=== PATIENT | male | born 1950 | race Caucasian/White ===

== ENCOUNTER 2023-09-01 18:02 | Inpatient (IN) | payer OTHER, SELFPAY ==
[2023-09-01] VITALS (29 sets, daily range): BP systolic 95–113; BP diastolic 66–79; PULSE 104–121; RESP 16–34; TEMP 36.6–37.2; O2SAT 90–99
--- NOTE | ~2023-09-01 | XR_ITS ---
EXAMINATION: XR chest 1V portable Exam Date/Time: 09/01/2023 18:15 CDT HISTORY: SOB, HIGH HR, DX PNEUMONIA 6 DAYS AGO, NOT GETTING BETTER Comparison: None. RESULT: Lines, tubes, and devices: None. Lungs and pleura: Lumbar airspace disease in the left upper and midlung. Segmental airspace disease in the peripheral right upper lung. Emphysematous/senescent changes. Cardiomediastinal silhouette: Unremarkable. Other: No acute osseous or upper abdominal finding. IMPRESSION: Bilateral airspace disease concerning for multifocal pneumonia. Reviewed, dictated and finalized at location K.
--- NOTE | ~2023-09-01 | XR_ITS ---
Portable chest x-ray Comparison: 09/01/2023 Clinical History: Pneumonia Findings: There is patchy bilateral consolidation throughout both lungs. Probable minimal left pleur al effusion. Cardiomediastinal silhouette is stable. Bones and soft tissues are unremarkable. Impression: Patchy bilateral consolidation, worsened in the right lung. Findings suggest bilateral pneumonia. Minimal left pleural effusion. Reviewed, dictated and finalized at location . Impression: Patchy bilateral consolidation, worsened in the right lung. Findings suggest bi lateral pneumonia. Minimal left pleural effusion.
--- NOTE | ~2023-09-01 | XR_ITS ---
XR chest 2V 09/08/2023 13:45 Indication: Cough. Dyspnea with exertion. Procedure: 2 view chest Comparison: 09/04/2023 Findings: Patchy bilateral airspace disease present, consistent with pneumonia. Interval development of curvilinear radiolucency left upper thorax peripherally. Small left pleural effusion. Elevated lef t diaphragm. Impression: 1: Patchy bilateral pneumonia. 2: New curvilinear radiolucency left upper thorax which may represent loculated pneumothorax or cavit tyra mass. Consider correlation with CT chest. Reviewed, dictated and finalized at location B. Impression: 1: Patchy bilateral pneumonia. 2: New curvilinear radiolucency left upper thorax which may represent loculated pneumothorax or cavitary mass. Consider correlation with CT chest.
--- NOTE | ~2023-09-01 | CT_ITS ---
EXAMINATION: CT diagnostic chest wo con DATE: 09/08/2023 15:48 INDICATION: Abnormal chest x-ray TECHNIQUE: Computed tomography (CT) of the chest was performed without intravenous contrast. Addition al 3D reconstructions utilizing coronal maximum intensity projection (MIP) were performed. Automated exposure control and iterative reconstruction technique were employed. The dose-length product was 14 3.95 mGy-cm. COMPARISON: 09/01/2023 FINDINGS: Interval progression of multiple regions of peripheral predominant patchy consolidation and groundgla ss opacities involving all lobes of both lungs. There is some associated volume loss in the affected segments with bronchovascular crowding most prominent at the lingula. No smooth septal line thickenin g to suggest pulmonary edema. New small left pleural effusion. Mild cardiomegaly. No pericardial effu peterson. Thoracic aorta is normal in caliber. No pathologically enlarged thoracic lymphadenopathy. 3 hep atic cysts the largest measuring 6.8 cm. Mild upper thoracic levoscoliosis with severe cervical and m oderate to severe thoracic spondylosis. IMPRESSION: 1. Interval progression of peripheral predominant patchy consolidation groundglass opacities involvin g all lobes of both lungs. This most likely represent pulmonary infarcts based upon prior CT imaging with pulmonary emboli extending to the affected segments. Differential would include less likely pneu monia. 2. New small left pleural effusion. 3. Mild cardiomegaly. Reviewed, dictated and finalized at location A. IMPRESSION: 1. Interval progression of peripheral predominant patchy consolidation groundgl ass opacities involving all lobes of both lungs. This most likely represent pul monary infarcts based upon prior CT imaging with pulmonary emboli extending to the affected segments. Differential would include less likely pneumonia. 2. New small left pleural effusion. 3. Mild cardiomegaly.
--- NOTE | ~2023-09-01 | US_ITS ---
EXAMINATION: US venous doppler [facility] DATE: 09/02/2023 16:35 INDICATION: Pulmonary embolism TECHNIQUE: Grayscale ultrasound images without and with compression and Doppler ultrasound images of the bilateral lower extremity veins were obtained. COMPARISON: None. FINDINGS: The visualized portions of right common femoral vein, profunda (deep) femoral vein, femoral vein, pop liteal vein, posterior tibial veins, peroneal veins, gastrocnemius vein and greater saphenous vein ou tflow are patent. The visualized portions of left common femoral vein, profunda femoral vein, femoral vein, popliteal v ein, posterior tibial veins, peroneal veins, gastrocnemius vein and greater saphenous vein outflow ar e patent. IMPRESSION: 1. No deep venous thrombosis in either lower limb. Reviewed, dictated and finalized at location A.
--- NOTE | ~2023-09-01 | CT_ITS ---
EXAMINATION: CTA chest PE protocol DATE: 09/01/2023 21:13 INDICATION: pneumonia, tachycardia TECHNIQUE: Computed tomography angiography (CTA) of the chest was performed with 100 mL Omnipaque-350 intravenous contrast timed to evaluate the pulmonary arteries. Coronal maximum intensity projection 3D-reconstructions were created by the technologist. The dose-length product (DLP) was 213.20 mGy-cm. Automated exposure control and iterative reconstruction technique were employed. COMPARISON: X-ray chest, same date. FINDINGS: Lung parenchyma and airways: Multifocal segmental areas of consolidation with surrounding groundglass opacity in all lobes. The airways are clear. Pleura: Unremarkable. Thoracic inlet, axillae and chest wall: Unremarkable. Thoracic aorta: No significant dilation. No dissection. Mediastinum: Normal. Heart and pericardium: Normal. RV/LV ratio 1.1 Coronary artery calcifications: Mild. Upper abdomen: Multiple hepatic cysts, measuring up to 6.8 cm in the right liver lobe. Minimal contra st reflux into the IVC. Bones: No acute osseous finding. Pulmonary arteries: Study quality: Adequate. Acute occlusive and nonocclusive emboli in the segmental and subsegmental branches of the bilateral upper lobes, right middle lobe, and right lower lobe. Sub segmental emboli in multiple lower lobe arterial branches. IMPRESSION: Multiple acute occlusive and nonocclusive emboli affecting all lung lobes. Large clot burden. Evidenc e of right heart strain. Multiple segmental pulmonary infarctions are suspected. Infection is not excluded. Results reported telephonically to Dr. Genao by Dr. Jose at 9:39 PM on 09/01/2023. Reviewed, dictated and finalized at location K. IMPRESSION: Multiple acute occlusive and nonocclusive emboli affecting all lung lobes. Larg e clot burden. Evidence of right heart strain. Multiple segmental pulmonary infarctions are suspected. Infection is not exclud ed. Results reported telephonically to Dr. Genao by Dr. Jose at 9:39 PM on 08/14.
--- NOTE | 2023-09-01 18:11 | ECG_ITS ---
Measurements Intervals [place] Rate: 115 P: 3 [place]: 180 QRS: -61 QRSD: 162 T: 81 QT: 361 QTc: 500 Interpretive Statements SINUS TACHYCARDIA LEFT AXIS DEVIATION LEFT BUNDLE BRANCH BLOCK ABNORMAL ECG NO PREVIOUS ECG AVAILABLE FOR COMPARISON Electronically Signed On 09-03-2023 12:15:54 CDT by Raffy Dalton D.O.
[2023-09-01 18:38] LABS: Basophils Percent Auto 0.3 % (0.2-1.2); Hemoglobin 13.7 g/dL (14.0-18.0); Immature Granulocyte Absolute 0.08 K/mm3 (0.00-0.031); Immature Granulocyte Percent A 0.6 % (0-0.5); Lymphocytes Absolute Auto 0.51 K/mm3 (0.9-3.2); Lymphocytes Percent Auto 3.6 % (18.3-44.2); Mean Corpuscular HGB Conc 33.4 g/dl (32-36); Mean Corpuscular Hemoglobin 30.9 pg (26-34); Mean Corpuscular Volume 92.3 fl (80-100); Mean Platelet Volume 9.2 fl (7.4-10.4); Monocytes Absolute Auto 0.9 K/mm3 (0.1-0.6); Monocytes Percent Auto 6.7 % (2.6-8.5); Neutrophils Absolute Auto 12.5 K/mm3 (1.3-6.7); Neutrophils Percent Auto 88.8 % (45.5-73.1); Platelet Count Result 264 k/mm3 (150-375); Red Blood Count 4.44 M/mm3 (4.6-6.20); Red Cell Distribution Width 11.9 % (11.5-14.5); White Blood Count 14.1 K/mm3 (4.5-10.0)
[2023-09-01 18:53] LABS: Alanine Aminotransferase 19 U/L (6-50); Albumin Level 3.3 g/dL (3.5-5.1); Alkaline Phosphatase 90 U/L (38-126); Anion Gap 9 mmol/L (8-16); Aspartate Amino Transferase 28 U/L (17-59); Bilirubin,Total 0.8 mg/dL (0.2-1.3); Blood Urea Nitrogen 11 mg/dL (9-20); Calcium 8.5 mg/dL (8.4-10.2); Carbon Dioxide 25 mmol/L (22-30); Chloride 92 mmol/L (98-107); Estimated CRCL calculation 60 ml/min; Estimated Glomerular Filt Rate > 60; Glucose 283 mg/dL (65-110); Potassium 4.7 mmol/L (3.4-5.0); Sodium 126 mmol/L (137-145)
--- NOTE | 2023-09-01 19:49 | ED_ITS ---
HPI - SOB/Dyspnea General Chief Complaint: Shortness of Breath/Dyspnea Stated Complaint: [place], recent pna Time Seen by Provider: 09/01/23 18:33 Related Data Allergies Allergy/AdvReac Type Severity Reaction Status Date / Time Penicillins Allergy Unknown HIVES Verified 06/24/13 16:47 Course Vital Signs Vital signs: Vital Signs Temperature 98 F 09/01/23 18:04 Pulse Rate 121 H 09/01/23 18:04 Respiratory Rate 19 09/01/23 18:04 Blood Pressure 108/75 09/01/23 18:04 Pulse Oximetry 96 09/01/23 18:04 Oxygen Delivery Nasal Cannula 09/01/23 18:04 Oxygen Flow Rate 4 09/01/23 18:04 Temperature 98 F 09/01/23 18:04 Pulse Rate 117 H 09/01/23 19:11 Respiratory Rate 19 09/01/23 19:11 Blood Pressure 103/71 09/01/23 18:16 Pulse Oximetry 95 09/01/23 19:11 Oxygen Delivery Nasal Cannula 09/01/23 18:12 Oxygen Flow Rate 4 09/01/23 18:12 MDM - SOB/Dyspnea Lab Data 09/01/23 18:28 09/01/23 18:28 Labs: Lab Results 09/01/23 Range/Units 18:28 WBC 14.1 H (4.5-10.0) K/mm3 RBC 4.44 L (4.6-6.20) M/mm3 Hgb 13.7 L (14.0-18.0) g/dL Hct 41.0 L (42.0-52.0) % MCV 92.3 (80-100) fl MCH 30.9 (26-34) pg MCHC 33.4 (32-36) g/dl RDW 11.9 (11.5-14.5) % Plt Count 264 (150-375) k/mm3 MPV 9.2 (7.4-10.4) fl Immature Gran % (Auto) 0.6 H (0-0.5) % Neut % (Auto) 88.8 H (45.5-73.1) % Lymph % (Auto) 3.6 L (18.3-44.2) % Assumption % (Auto) 6.7 (2.6-8.5) % Eos % (Auto) 0.0 (0-4.4) % Baso % (Auto) 0.3 (0.2-1.2) % Lymph # (Auto) 0.51 L (0.9-3.2) K/mm3 Assumption # (Auto) 0.9 H (0.1-0.6) K/mm3 Eos # (Auto) 0.0 (0-0.3) K/mm3 Baso # (Auto) 0.0 (0.0-0.1) K/mm3 Abs Immat Gran (auto) 0.08 H (0.00-0.031) K/mm3 Absolute Neuts (auto) 12.5 H (1.3-6.7) K/mm3 Absolute Nucleated RBC 0.000 (0.0-0.012) K/mm3 Nucleated RBC % 0.0 (0.0-0.2) % Sodium 126 L (137-145) mmol/L Potassium 4.7 (3.4-5.0) mmol/L Chloride 92 L (98-107) mmol/L Carbon Dioxide 25 (22-30) mmol/L Anion Gap 9 (8-16) mmol/L BUN 11 (9-20) mg/dL Creatinine 0.80 (0.7-1.3) mg/dL Estim Creat Clear Calc 60 ml/min Estimated GFR > 60 (59 - ) Glucose 283 H (65-110) mg/dL Calcium 8.5 (8.4-10.2) mg/dL Total Bilirubin 0.8 (0.2-1.3) mg/dL AST 28 (17-59) U/L ALT 19 (6-50) U/L Alkaline Phosphatase 90 (38-126) U/L Total Protein 7.0 (6.3-8.2) g/dL Albumin 3.3 L (3.5-5.1) g/dL Discharge Plan Discharge Follow-up/Referrals: Ricky,Leonel Clifford MD [Primary Care Provider] -
[2023-09-01 20:41] LABS: INR 1.3; Partial Thromboplastin Time 29.7 Seconds (22.3-36.8); Prothrombin Time 16.6 Seconds (11.1-14.7)
[2023-09-01] MEDS: SODIUM CHLORIDE 0.9% IV 1,000 ML 999 ML IV CONT ×2 (20:44→20:45)
[2023-09-01] MEDS: cefTRIAXone 2 GM/NS 100 ML 2 GM/100 ML BAG IVPB (20:45)
[2023-09-01 21:19] LABS: Lactic Acid Reflex 1.8 mmol/L (0.7-2.0)
[2023-09-01] MEDS: DOXYCYCLINE 100 MG/NS 100 ML 100 MG/100 ML BAG IVPB (21:40)
[2023-09-01 21:50] LABS: Influenza A QL RT-PCR Negative (Negative); Influenza B QL RT-PCR Negative (Negative); RSV RNA, RT-PCR Negative (Negative); SARS-CoV-2 RNA PCR Negative (Negative)
--- NOTE | 2023-09-01 22:06 | ED.SOB ---
HPI - SOB/Dyspnea General Chief Complaint: Shortness of Breath/Dyspnea Stated Complaint: [place], recent pna Time Seen by Provider: 09/01/23 18:33 History of Present Illness HPI Narrative: Patient is a 72-year-old male presenting with shortness of breath. States that he was diagnosed with pneumonia last week. He was started on azithromycin and cefuroxime which he has been taking as prescribed. States that unfortunately he has continued to have worsening shortness of breath as well as some right-sided chest pain. Reports decreased appetite but no abdominal pain, nausea vomiting, diarrhea. No leg swelling. Related Data Home Medications Medication Instructions Recorded Confirmed diazepam 5 mg tablet 5 mg BID PRN Anxiety 09/02/23 09/02/23 pantoprazole 40 mg tablet,delayed 40 mg PO DAILY 09/02/23 09/02/23 release simvastatin 20 mg tablet 20 mg HS 09/02/23 09/02/23 trazodone 50 mg tablet 50 mg HS PRN Sleep 09/02/23 09/02/23 Allergies Allergy/AdvReac Type Severity Reaction Status Date / Time Penicillins Allergy Unknown HIVES Verified 09/05/23 11:46 Review of Systems Review of Systems: All systems reviewed & are unremarkable except as noted in HPI and below PMFSH Past Medical History Medical History (Updated 09/05/23 @ 22:15 by Naomie Genao MD) Anxiety and depression Hyperlipidemia Surgical History Surgical History History of ankle surgery Hx of hernia repair Hx of tonsillectomy Family History Family History Mother Heart disease Father Heart disease Diabetes mellitus Sibling Diabetes mellitus A-fib Social History Social History Social History: Patient smoked 1 pack per week for about 4 years but quit when he was 25 years old. 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 He drinks 8-10 alcoholic drinks per week. Denies drug use currently or in the past. He is single. Lives alone. He nominates his sister to be the individual would make medical decisions for him if he is unable. He wishes to make himself a DNR. Years smoked: 5 Smoking status: Former smoker Alcohol intake: current Drinks per week: 9 Do You Feel Safe in your Home?: Yes Lack of Transportation: No Lack of Food: Never True Current Housing: I Have Housing Concerned About Future Housing: No Difficulty Paying Gas/Electric Bills: No Difficulty Paying for Meds: No Currently Unemployed: No Education: Trade/Vocational Certificate Difficulty w/ Childcare or Family Care: No Spiritual care concerns: No Exam Narrative: GENERAL: Nontoxic, no acute distress, pleasant cooperative HEAD: Normocephalic, atraumatic. EYES: PERRLA and EOMI. ENT: Grossly unremarkable NECK: Supple. CHEST: Coarse breath sounds bilaterally HEART: Tachycardic, regular rhythm ABDOMEN: Soft, nontender, nondistended EXTREMITIES: Normal range of motion. No edema. SKIN: Warm, dry, no rash. NEURO: No focal deficits. Alert and oriented x3. PSYCH: Normal mood and affect. Course Vital Signs Vital signs: Vital Signs Temperature 98 F 09/01/23 18:04 Pulse Rate 121 H 09/01/23 18:04 Respiratory Rate 19 09/01/23 18:04 Blood Pressure 108/75 09/01/23 18:04 Pulse Oximetry 96 09/01/23 18:04 Oxygen Delivery Nasal Cannula 09/01/23 18:04 Oxygen Flow Rate 4 09/01/23 18:04 Temperature 99 F 09/05/23 20:00 Pulse Rate 96 09/05/23 20:00 Respiratory Rate 16 09/05/23 20:00 Blood Pressure 104/56 L 09/05/23 20:00 Pulse Oximetry 96 09/05/23 20:00 Oxygen Delivery Room Air 09/05/23 20:00 Oxygen Flow Rate 2 09/03/23 20:00 Fraction of Inspired Oxygen 21 09/04/23 09:40 MDM - SOB/Dyspnea MDM Narrative Medical decision making narrative: 72-year-old male presenting with worsening shortness of breath in the setting of recent pneumonia
[2023-09-01] MEDS: HEPARIN SOD/D5W 100 UNITS/ML 25,000 UNITS/250 ML BAG 11 UNITS IV CONT (22:17)
[2023-09-01] MEDS: HEPARIN SODIUM 5,000 UNITS/ML VIAL 4500 UNITS IV PUSH (22:17)
[2023-09-01 22:29] LABS: Lipase 34 U/L (23-300)
[2023-09-01 22:51] LABS: NT Pro B Type Natriuretic Pept 6400 pg/mL (19.9-100); Troponin I 0.308 ng/mL (0.000-0.034)
[2023-09-02] VITALS (31 sets, daily range): BP systolic 97–132; BP diastolic 47–90; PULSE 89–110; RESP 19–28; TEMP 36.3–38.8; O2SAT 92–100; BMI 19.8
--- NOTE | 2023-09-02 | ECHO_ITS ---
Patient Info Name: Saroj Wagoner Age: 72 years : 1950 Gender: Male Ht: 67 in Wt: 130 lbs BSA: 1.67 m2 HR: 95 bpm BP: 116 / 73 mmHg Heart Rhythm: Sinus Rhythm Technical Quality: Good Exam Date: 09/02/2023 3:30 PM Exam Location: Echo Lab Patient Status: Inpatient Admit Date: 09/01/2023 Staff Ordering Physician: Leonel Salgado MD [employer] Helper: Tasneem Diego RDCS Attending Provider: Lashanda Hinkle DO Exam Type: CA echo dop color flow w con Study Info Indications - PE, RT HEART STRAIN Complete two-dimensional, color flow and Doppler transthoracic echocardiogram is performed with contrast to opacify the left ventricle and to improve the deliniation of the left ventricle endocardial borders. Contrast/Agitated Saline Contrast/Ag. Saline: Definity Amount: 2.00 ml Administered By: Tasneem Diego RDCS Existing IV Access: Yes IV Access Condition: patent with no signs of infiltration Summary 1. Left ventricular chamber dimension is normal. 2. There is mildly increased left ventricular wall thickness. 3. Left ventricular septal wall motion is abnormal with septal motion related to bundle branch block. 4. Left ventricular systolic function is severely reduced, estimated at 20-25%. 5. The left ventricular diastolic function is grade I diastolic dysfunction. 6. Possible LV thrombus in the apex vs heavy trabeculation; cannot rule out thrombus. 7. Right ventricular chamber dimension is mildly enlarged. 8. Right ventricular systolic function is reduced. 9. Flattening of the ventricular septum in mid to late diastole consistent with right ventricular volume overload. 10. Left atrial chamber dimension is mildly enlarged. 11. Right atrial chamber dimension is mildly enlarged. 12. There is mild mitral valve regurgitation. 13. There is mild tricuspid valve regurgitation. Left Ventricle Left ventricular chamber dimension is normal. Left ventricular systolic function is severely reduced, estimated at 20-25%. There is mildly increased left ventricular wall thickness. Left ventricular septal wall motion is abnormal with septal motion related to bundle branch block. The left ventricular diastolic function is grade I diastolic dysfunction. Possible LV thrombus in the apex vs heavy trabeculation; cannot rule out thrombus. Right Ventricle Flattening of the ventricular septum in mid to late diastole consistent with right ventricular volume overload. Right ventricular chamber dimension is mildly enlarged. Right ventricular systolic function is reduced. Left Atria Left atrial chamber dimension is mildly enlarged. Right Atria Right atrial chamber dimension is mildly enlarged. Atrial Septum Intact interatrial septum visualized by color flow imaging. Aortic Valve The aortic valve is probable trileaflet. There is no aortic valve stenosis. There is no aortic valve regurgitation. There is mild aortic valve calcification. Pulmonic Valve The pulmonic valve is not well visualized. Mitral Valve There is mild mitral valve regurgitation. Tricuspid Valve There is mild tricuspid valve regurgitation. Pericardium/Pleural There is no pericardial effusion. Inferior Vena Cava Normal inferior vena cava with >50% collapse upon inspiration consistent with normal right atrial pressure, 3 mmHg. Aorta The aortic root size at the sinus of Valsalva is normal. Left Ventricular Outflow Tract Name Value Normal
[2023-09-02 02:34] LABS: Basophils Percent Auto 0.3 % (0.2-1.2); Eosinophils Percent Auto 0.1 % (0-4.4); Hematocrit 38.4 % (42.0-52.0); Hemoglobin 12.4 g/dL (14.0-18.0); Immature Granulocyte Absolute 0.07 K/mm3 (0.00-0.031); Immature Granulocyte Percent A 0.6 % (0-0.5); Lymphocytes Absolute Auto 1.41 K/mm3 (0.9-3.2); Lymphocytes Percent Auto 11.8 % (18.3-44.2); Mean Corpuscular HGB Conc 32.3 g/dl (32-36); Mean Corpuscular Hemoglobin 31.2 pg (26-34); Mean Corpuscular Volume 96.5 fl (80-100); Mean Platelet Volume 9.7 fl (7.4-10.4); Monocytes Absolute Auto 1.2 K/mm3 (0.1-0.6); Monocytes Percent Auto 9.6 % (2.6-8.5); Neutrophils Absolute Auto 9.3 K/mm3 (1.3-6.7); Neutrophils Percent Auto 77.6 % (45.5-73.1); Platelet Count Result 234 k/mm3 (150-375); Red Blood Count 3.98 M/mm3 (4.6-6.20); Red Cell Distribution Width 11.9 % (11.5-14.5)
[2023-09-02 05:03] LABS: INR 1.3; Prothrombin Time 17.4 Seconds (11.1-14.7)
[2023-09-02 05:04] LABS: Partial Thromboplastin Time 41.3 Seconds (22.3-36.8)
[2023-09-02] MEDS: HEPARIN SODIUM 5,000 UNITS/ML VIAL 4500 UNITS IV PUSH (05:38)
[2023-09-02 06:00] LABS: Basophils Percent Auto 0.1 % (0.2-1.2); Eosinophils Percent Auto 0.1 % (0-4.4); Hematocrit 37.5 % (42.0-52.0); Hemoglobin 12.3 g/dL (14.0-18.0); Immature Granulocyte Absolute 0.11 K/mm3 (0.00-0.031); Immature Granulocyte Percent A 0.7 % (0-0.5); Mean Corpuscular HGB Conc 32.8 g/dl (32-36); Mean Corpuscular Hemoglobin 30.9 pg (26-34); Mean Corpuscular Volume 94.2 fl (80-100); Mean Platelet Volume 9.3 fl (7.4-10.4); Monocytes Absolute Auto 1.2 K/mm3 (0.1-0.6); Monocytes Percent Auto 7.8 % (2.6-8.5); Neutrophils Absolute Auto 13.1 K/mm3 (1.3-6.7); Neutrophils Percent Auto 87.3 % (45.5-73.1); Platelet Count Result 247 k/mm3 (150-375); Red Blood Count 3.98 M/mm3 (4.6-6.20); Red Cell Distribution Width 11.9 % (11.5-14.5); White Blood Count 15.1 K/mm3 (4.5-10.0)
[2023-09-02 06:29] LABS: Troponin I 0.201 ng/mL (0.000-0.034)
[2023-09-02] MEDS: ACETAMINOPHEN 325 MG TABLET 650 MG PO ×3 (07:16→22:51)
[2023-09-02] MEDS: VANCOMYCIN 1,500 MG/NS 500 ML BAG 250 MG IVPB (07:46)
--- NOTE | 2023-09-02 08:56 | PM.IMHP ---
H&P: HPI History of Present Illness Date/Time: 09/02/23 08:56 Chief Complaint: Shortness of breath Narrative: 72yo male with HLD and anxiety/depression here for shortness of breath.? Sometime around [place], patient states he was laid off from his work and became very depressed. He states he was sleeping a lot up to 10 hours a day in bed. He also had lost a close family relative recently as well. Patient's mood was slowly improving. He denies any suicidal homicidal ideation. Denies any suicide attempt. He was doing better up until about 2-3 weeks ago we started developed postnasal drainage symptoms as well as decreased appetite and decreased energy. He has lost about 20 lb over the past few weeks. No fever or chills. About a week ago, patient developed cough and shortness of breath. Developed left-sided pleuritic chest pain. He went to an urgent care center about 5 days prior to admission and they ordered x-ray for the next day and he was found to have infiltrates. Results are not available at this time for me to review. His doctor started him on azithromycin and cefuroxime on August 27. He felt better initially for about a day or so but then symptoms returned with increasing shortness of breath and cough that was occasionally productive of whitish sputum. No hemoptysis. Denies any calf pain. No pedal edema. No history of cancer. No long car rides or plane rides. He does not recall the last time he had a PSA. His last colonoscopy was 2010 and was due for repeat colonoscopy in 2020. He has no history of heart disease, hypertension, CVA, thyroid disease or diabetes. Review of systems otherwise was negative except for some hearing loss and some mild loose stools related to the antibiotics. Because of the worsening symptoms, he presented to emergency room for evaluation. In the ED, patient was tachycardic at 121. Blood pressure was normal. He is 96% on 4 L. he was afebrile at presentation but developed fever 101.9 after admission. White count was mildly elevated at 14 K. sodium is 126. Glucose was 283. Otherwise CMP was normal. Troponin was elevated 0.3. BNP was 6400. Lipase was normal. Influenza, RSV and COVID PCR were negative. CTA of the chest showed multiple acute occlusive and nonocclusive emboli affecting all lung lobes. He has a large clot burden with evidence of right heart strain. He also has multiple segmental pulmonary infarcts although cannot exclude pneumonia. EKG not available to review. Patient was started on Rocephin, doxycycline and vancomycin. Was given IV fluids and started on heparin drip. He was admitted for further care. Review of Systems Review of Systems: All systems reviewed & are unremarkable except as noted in HPI and below PMFSH Past Medical History Medical History (Updated 09/02/23 @ 11:05 by Leonel Salgado MD) Anxiety and depression Hyperlipidemia Surgical History Surgical History (Updated 09/02/23 @ 10:57 by Leonel Salgado MD) History of ankle surgery Hx of hernia repair Hx of tonsillectomy Family History Family History (Updated 09/02/23 @ 10:58 by Leonel Salgado MD) Mother Diabetes mellitus Heart disease Father Heart disease Social History Social History (Updated 09/02/23 @ 10:59 by Leonel Salgado MD) Social History: Patient smoked 1 pack per week for about 4 years but quit when he was 25 years old. 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 He drinks 8-10 alcoholic drinks per week. Denies drug use currently or in the past. He is single. Lives alone. He nominates his sister to be the individual would make medical decisions for him if he is unable. He wishes to make himself a DNR. Meds Home Medications and Allergies Allergies Allergy/AdvReac Type Severity Reaction Status Date / Time Penicillins Allergy Unknown HIVES Verified 06/24/13 16:47 Vital Signs Vital Signs - 24 hr 09/01/23 18:04 09/01/23 18:12 09/01/23 18:0
[2023-09-02] MEDS: CEFEPIME 2 GM/NS 50 ML 2 GM/50 ML BAG IVPB ×2 (10:23→22:49)
[2023-09-02 10:39] LABS: INR 1.4; Prothrombin Time 17.6 Seconds (11.1-14.7)
[2023-09-02 10:42] LABS: Partial Thromboplastin Time 96.5 Seconds (22.3-36.8)
--- NOTE | 2023-09-02 11:34 | PC.NURSE ---
Dr. Salgado notified pt complaining of pain and request for pain medication.
[2023-09-02] MEDS: PANTOPRAZOLE 40 MG TABLET PO (12:28)
[2023-09-02 12:34] LABS: Glucose Point of Care 153 mg/dl (65-105)
[2023-09-02] MEDS: PERFLUTREN LIPID MICROSPHERES 1.5 ML VIAL DILUTED TO 10 ML TOTAL VOLUME IV PUSH (15:34)
--- NOTE | 2023-09-02 16:42 | IVDEFINITY ---
Prior to administration of IV Definity the patient was educated on the risks and benefits of the imaging enhancing agent including potential adverse side effects. The patient verbalized understanding. Allergies were verified. No exclusion criteria were identified and at least one of the following inclusion criteria were met: 1) physician request, 2) patient technically difficult to image (per the [place] [employer] guidelines of two or more segments not discernable within the apical view), or 3) questionable left ventricular function. ?
[2023-09-02 18:05] LABS: Glucose Point of Care 116 mg/dl (65-105)
[2023-09-02 18:08] LABS: INR 1.4; Prothrombin Time 18.3 Seconds (11.1-14.7)
[2023-09-02 18:42] LABS: Partial Thromboplastin Time 99.9 Seconds (22.3-36.8)
[2023-09-02] MEDS: HEPARIN SOD/D5W 100 UNITS/ML 25,000 UNITS/250 ML BAG 13 UNITS IV CONT (19:51)
[2023-09-03] VITALS (14 sets, daily range): BP systolic 101–129; BP diastolic 54–92; PULSE 80–113; RESP 16–28; TEMP 36.4–36.8; O2SAT 90–96; BMI 20.3
[2023-09-03 00:44] LABS: Glucose Point of Care 131 mg/dl (65-105)
[2023-09-03 01:15] LABS: Basophils Percent Auto 0.2 % (0.2-1.2); Hematocrit 32.3 % (42.0-52.0); Hemoglobin 10.9 g/dL (14.0-18.0); Immature Granulocyte Absolute 0.05 K/mm3 (0.00-0.031); Immature Granulocyte Percent A 0.4 % (0-0.5); Lymphocytes Absolute Auto 1.06 K/mm3 (0.9-3.2); Lymphocytes Percent Auto 7.5 % (18.3-44.2); Mean Corpuscular HGB Conc 33.7 g/dl (32-36); Mean Corpuscular Hemoglobin 31.1 pg (26-34); Mean Corpuscular Volume 92.3 fl (80-100); Mean Platelet Volume 9.2 fl (7.4-10.4); Monocytes Absolute Auto 1.2 K/mm3 (0.1-0.6); Monocytes Percent Auto 8.5 % (2.6-8.5); Neutrophils Absolute Auto 11.8 K/mm3 (1.3-6.7); Neutrophils Percent Auto 83.4 % (45.5-73.1); Platelet Count Result 250 k/mm3 (150-375); Red Cell Distribution Width 12.3 % (11.5-14.5); White Blood Count 14.2 K/mm3 (4.5-10.0)
[2023-09-03 01:28] LABS: Partial Thromboplastin Time 112.9 Seconds (22.3-36.8)
[2023-09-03 01:32] LABS: Alanine Aminotransferase 17 U/L (6-50); Albumin Level 2.6 g/dL (3.5-5.1); Alkaline Phosphatase 77 U/L (38-126); Anion Gap 2 mmol/L (8-16); Aspartate Amino Transferase 28 U/L (17-59); Bilirubin,Total 0.7 mg/dL (0.2-1.3); Blood Urea Nitrogen 12 mg/dL (9-20); Calcium 8.2 mg/dL (8.4-10.2); Carbon Dioxide 25 mmol/L (22-30); Chloride 103 mmol/L (98-107); Estimated CRCL calculation 89 ml/min; Estimated Glomerular Filt Rate > 60; Glucose 120 mg/dL (65-110); Phosphorus 2.9 mg/dL (2.5-4.5); Potassium 3.9 mmol/L (3.4-5.0); Sodium 130 mmol/L (137-145)
[2023-09-03] MEDS: VANCOMYCIN 1,000 MG/NS 250 ML 1,000 MG/250 ML BAG 250 MG IVPB (02:00)
[2023-09-03 03:27] LABS: Hemoglobin A1C 5.4 % (<5.7)
--- NOTE | 2023-09-03 07:00 | ECG_ITS ---
Measurements Intervals [place] Rate: 96 P: 41 [place]: 169 QRS: -51 QRSD: 168 T: -4 QT: 391 QTc: 496 Interpretive Statements SINUS RHYTHM LEFT AXIS DEVIATION LEFT BUNDLE BRANCH BLOCK BASELINE ARTIFACT- I, II, AVR, AVL, AVF ABNORMAL ECG NO PREVIOUS ECG AVAILABLE FOR COMPARISON Electronically Signed On 09-03-2023 8:23:24 CDT by Raffy Dalton D.O.
[2023-09-03 08:24] LABS: Glucose Point of Care 94 mg/dl (65-105)
[2023-09-03] MEDS: PANTOPRAZOLE 40 MG TABLET PO (08:58)
[2023-09-03] MEDS: CEFEPIME 2 GM/NS 50 ML 2 GM/50 ML BAG IVPB ×2 (08:58→21:38)
[2023-09-03] MEDS: HEPARIN SODIUM 5,000 UNITS/ML VIAL 2500 UNITS IV PUSH (08:58)
[2023-09-03 12:09] LABS: Glucose Point of Care 90 mg/dl (65-105)
--- NOTE | 2023-09-03 14:14 | PM.IMPN ---
Progress Note: A&P Assessment and Plan (1) Acute respiratory failure: Code(s): J96.00 - Acute respiratory failure, unspecified whether with hypoxia or hypercapnia Status: Acute Assessment and Plan: Patient found to be hypoxic on admission. Related to PE and possibly pneumonia. Venous Doppler is negative Pt is on 2 liters of oxygen (2) Elevated troponin: Code(s): R79.89 - Other specified abnormal findings of blood chemistry Status: Acute Assessment and Plan: Troponin elevated to 0.3 on admission and has trended down from there. Suspect related to right heart strain from clot burden. Check echocardiogram. (3) Hyponatremia: Code(s): E87.1 - Hypo-osmolality and hyponatremia Status: Acute Assessment and Plan: Sodium 126 on admission. sodium is 130 today Consider also SIADH related to recent lung disease. (4) Hyperglycemia: Code(s): R73.9 - Hyperglycemia, unspecified Status: Acute Assessment and Plan: Check A1c. which is 5.4 pt is not a DM (5) Fever: Code(s): R50.9 - Fever, unspecified Status: Acute Assessment and Plan: Patient developed fever this morning. Could be related to PE but concern for pneumonia. COVID, RSV and influenza PCR were negative. Blood cultures are positive for gram positive cocci Continue iv cefepime and iv vancomycin (6) Pulmonary embolism and infarction: Code(s): I26.99 - Other pulmonary embolism without acute cor pulmonale Status: Acute Assessment and Plan: Patient presents with shortness of breath and found to have multi lobe PE with large clot burden and evidence of cardiac strain. Etiology unclear but could be related to his prolonged bedrest earlier this year. Consider occult cancer. Patient with murmur and rub possibly related to the right-sided strain. Heparin drip started yesterday. Venous dopplers are negative. Transition iv heparin to Eliquis. Subjective Date/time seen: 09/03/23 14:14 Interval history: 72yo male with HLD and anxiety/depression here for shortness of breath.? Sometime around [place], patient states he was laid off from his work and became very depressed.? He states he was sleeping a lot up to 10 hours a day in bed.? He also had lost a close family relative recently as well.? Patient's mood was slowly improving.? He denies any suicidal homicidal ideation.? Denies any suicide attempt.? He was doing better up until about 2-3 weeks ago we started developed postnasal drainage symptoms as well as decreased appetite and decreased energy.? He has lost about 20 lb over the past few weeks.? No fever or chills.? About a week ago, patient developed cough and shortness of breath.? Developed left-sided pleuritic chest pain.? He went to an urgent care center about 5 days prior to admission and they ordered x-ray for the next day and he was found to have infiltrates.? Results are not available at this time for me to review. His doctor started him on azithromycin and cefuroxime on August 27.? He felt better initially for about a day or so but then symptoms returned with increasing shortness of breath and cough that was occasionally productive of whitish sputum.? CT Multiple acute occlusive and nonocclusive emboli affecting all lung lobes. Large clot burden. Evidence of right heart strain. Multiple segmental pulmonary infarctions are suspected. Infection is not excluded. Pt is currently on heparin for PE Venous dopplers are negative Pt having low grade fevers ECHO ordered for R heart strain follow BC continue on with iv ABX Cxr for sabine am Review of Systems Review of Systems: Fevers, mild sob Exam Const: General: cooperative, healthy appearing and overweight; No in distress Nutritional Appearance: overweight Orientation/consciousness: oriented to person HENMT: Head: normal to inspection Resp: Effort & Inspection: no
[2023-09-03 15:04] LABS: Partial Thromboplastin Time 68.8 Seconds (22.3-36.8)
[2023-09-03] MEDS: ACETAMINOPHEN 325 MG TABLET 650 MG PO (15:22)
[2023-09-03] MEDS: APIXABAN 5 MG TABLET 10 MG PO (17:34)
[2023-09-03 20:03] LABS: Vancomycin Trough 5.3 ug/mL (10.0-20.0)
[2023-09-03] MEDS: SIMVASTATIN 20 MG TABLET BY MOUTH (21:38)
[2023-09-03] MEDS: diazePAM (*CRX) 5 MG TABLET BY MOUTH (21:41)
[2023-09-03] MEDS: VANCOMYCIN 1,250 MG/NS 250 ML 1,250 MG/250 ML BAG 166.67 MG IVPB (21:45)
--- NOTE | 2023-09-03 22:01 | PM.CNPUL ---
Assessment and Plan Assessment and plan (1) Pulmonary embolism and infarction: Code(s): I26.99 - Other pulmonary embolism without acute cor pulmonale Status: Acute Assessment and Plan: This patient has a large clot burden, has a CTA on September 01, 2023 showing multiple acute occlusive and nonocclusive emboli affecting all lung lobes. Large clot burden. Evidence of right heart strain. Multiple segmental pulmonary infarctions are suspected. Infection is not excluded. He required O2 on admission, now on room air; had tachycardia, has new LV failure, with right ventricular enlargement and dysfunction. He has no clots in his legs. This was unprovoked. He had no travel with immobility; he was switched from heparin drip to apixaban today 10 mg b.i.d for a week, then decrease to 5 mg b.i.d. to complete 3 months. With pulmonary infarctions, he may need to be reassessed in a few weeks to assure that he does not require O2 later. He has scattered infiltrates which could be infarctions, may also represent pneumonia. He was on azithromycin and cefuroxime orally before admission. He is currently on cefepime and vancomycin IV now which could be de-escalated if nothing returns on his cultures. His swabs for influenza A/B, RSV and SARS-CoV-2 are negative. He has no risk factors for MRSA. Never smoked, no lung disease, recent admissions. plan: Urine antigens for S pneumococcus and Legionella, MRSA nasal swab. Home O2 study before discharge. Overnight oximetry before discharge. He has had weight loss, depressed, no apparent malignancy. Will need repeat echo after discharge. History of Present Illness History of Present Illness Consult date: 09/03/23 Requesting physician: Leonel Salgado MD Chief complaint: Bilateral PE's w/Pulmonary Infarction Narrative: September 02 at 21:30 Room 205 NEW: Saroj Doctor is a 72 year old man here with shortness of breath, increased heart rate over 100 for 3-4 days and coughing bloody secretions. CTA showed acute occlusive and nonocclusive emboli affecting all lung lobes. Large clot burden. Evidence of right heart strain. Multiple segmental pulmonary infarctions are suspected. Infection is not excluded. He was seen at a [facility] clinic August 25 with cough, shortness of breath, some left-sided pleuritic chest pain, was treated with azithromycin and cefuroxime when a chest x-ray showed some infiltrates. He had a day or 2 of improvement but then symptoms worsened with scant blood tinged secretions. He has no risk factors for pulmonary embolus. He has not had any travel, immobility, normally is very active although he has been more sedentary over the last few years. His heart rate on presentation was 120 with normal blood pressure. Saturation was 96% on 4 L. No fever. He was started on heparin drip. Echocardiogram showed reduced ejection fraction 20-25%, left ventricular thrombus in the apex versus possible heavy trabeculation, right ventricular chamber mildly enlarged, right ventricular function reduced, flattening of the ventricular septum, biatrial enlargement. He has been weaned off oxygen now on room air. He started apixaban today 10 mg b.i.d PESI score-pulmonary embolus severity score; he is high risk for deterioration. age 72, male +10, CHF + 10, HR > 100 +10;= 103. He does not have a malignancy although he has lost weight over several months. He has lab markers for high risk prognosis; Na+ 130, WBC is > 12, although lactic acid was normal. DATA * wbc 14.2, platelets 250 k, Na+ 130, potassium 3.9 chloride 103 carbon dioxide 25 BUN 12 creatinine 0.5. * 09/01/2023 -serology influenza A/B, RSV, COVID negative. * 09/01/23 CXR - Bilateral airspace disease concerning for multifocal pneumonia. * 08/31 CTA lung parenchyma and airways: Multifocal segmental areas of consolidation with surrounding groundglass opacity in all lobes. The airways are clear. Ple
[2023-09-03 23:49] LABS: Glucose Point of Care 112 mg/dl (65-105)
[2023-09-04] VITALS (30 sets, daily range): BP systolic 92–144; BP diastolic 49–110; PULSE 55–158; RESP 16–20; TEMP 36.3–37.1; O2SAT 90–99
--- NOTE | 2023-09-04 01:43 | ECG_ITS ---
Measurements Intervals [place] Rate: 138 P: MA: 0 QRS: -51 QRSD: 159 T: 76 QT: 330 QTc: 500 Interpretive Statements ATRIAL FIBRILLATION WITH RAPID VENTRICULAR RESPONSE LEFT AXIS DEVIATION LEFT BUNDLE BRANCH BLOCK BASELINE ARTIFACT- II, V6 ABNORMAL ECG COMPARED TO ECG 09/03/2023 08:02:39 ATRIAL FIBRILLATION NOW PRESENT Electronically Signed On 09-04-2023 6:35:56 CDT by Raffy Dalton D.O.
[2023-09-04] MEDS: dilTIAZem HCl INJ 25 MG/5 ML VIAL 10 MG IV PUSH (02:19)
[2023-09-04] MEDS: dilTIAZem 100 MG/100 ML 100 MG/100 ML BAG 10 MG IV CONT (02:47)
[2023-09-04] MEDS: dilTIAZem 100 MG/100 ML 100 MG/100 ML BAG 15 MG IV CONT (03:33)
[2023-09-04] MEDS: VANCOMYCIN 1,250 MG/NS 250 ML 1,250 MG/250 ML BAG 166.67 MG IVPB (05:07)
[2023-09-04 05:09] LABS: Hematocrit 35.8 % (42.0-52.0); Hemoglobin 11.6 g/dL (14.0-18.0); Mean Corpuscular HGB Conc 32.4 g/dl (32-36); Mean Corpuscular Hemoglobin 30.9 pg (26-34); Mean Corpuscular Volume 95.2 fl (80-100); Mean Platelet Volume 9.4 fl (7.4-10.4); Platelet Count Result 343 k/mm3 (150-375); Red Blood Count 3.76 M/mm3 (4.6-6.20); Red Cell Distribution Width 12.3 % (11.5-14.5); White Blood Count 13.9 K/mm3 (4.5-10.0)
[2023-09-04 05:28] LABS: Anion Gap 7 mmol/L (8-16); Blood Urea Nitrogen 10 mg/dL (9-20); Calcium 8.3 mg/dL (8.4-10.2); Carbon Dioxide 24 mmol/L (22-30); Chloride 98 mmol/L (98-107); Estimated CRCL calculation 87 ml/min; Estimated Glomerular Filt Rate > 60; Glucose 106 mg/dL (65-110); Potassium 3.4 mmol/L (3.4-5.0); Sodium 129 mmol/L (137-145)
[2023-09-04] MEDS: AMIODARONE 150 MG/D5W 100 ML 150 MG/100 ML BAG 600 MG IV CONT (05:52)
[2023-09-04] MEDS: AMIODARONE 360 MG/D5W 200 ML 360 MG/200 ML BAG 33.33 MG IV CONT (06:01)
--- NOTE | 2023-09-04 08:15 | PC.NURSE ---
pt converted to afib rvr rate in the 140's around 0150, Dr Iyer notified and orders recived for cardizem and cardizem drip 0325 heart rate unchanged and notified provider. Orders to go up on gtt 0535 still in rvr, received orders for amiodarone bolus and gtt
--- NOTE | 2023-09-04 09:48 | PM.CNCAR ---
Assessment and Plan Assessment and plan (1) Pulmonary embolism and infarction: Code(s): I26.99 - Other pulmonary embolism without acute cor pulmonale Status: Acute Assessment and Plan: Pulmonary consulted. Thought to be unprovoked. He was on Heparin drip, but now switched to Eliquis per the DVT/PE dosing. Currently receiving Eliquis 10mg BID, which will be completed on 09/09 in the AM. Will go ahead and place an order for Eliquis 5mg BID to start 09/09 PM. (2) Heart failure with reduced ejection fraction: Code(s): I50.20 - Unspecified systolic (congestive) heart failure Status: Acute Assessment and Plan: Echocardiogram shows: LVEF 20-25%. Possible LV thrombus in the LV apex vs heavy trabeculation, cannot rule out thrombus. RV is mildly enlarged with reduced function. Flattening of the ventricular septum in mid to late diastole consistent with RV volume overload. Mild biatrial enlargement. Mild MR. Mild TR This is a new diagnosis of heart failure with reduced LVEF for the patient. He is currently euvolemic. Will start Entresto. Will start Toprol. Eventually add on Spironolactone and SGLT-2 inhibitor. Eventually will need an ischemic evaluation, however, no concerns for an acute coronary syndrome at this time, so ischemic evaluation can be done as outpatient. Could obtain coronary CTA as an outpatient. Echo shows possible LV thrombus in the LV apex vs heavy trabeculation, cannot rule out thrombus -- can obtain cardiac MRI or cardiac CT as an outpatient to further clarify. Regardless, needs to be on anticoagulation anyways for his PE and AFIB, therefore, management would not change. (3) Atrial fibrillation with RVR: Code(s): I48.91 - Unspecified atrial fibrillation Status: Acute Assessment and Plan: New onset of atrial fibrillation overnight. Converted to sinus rhythm on Amiodarone drip. Will check TSH level. Start Toprol. Given the acute PE with large clot burden and HFrEF, he has a higher chance of going back into AFIB, therefore, will complete Amiodarone drip per protocol today and start PO Amiodarone tomorrow in order to hopefully maintain sinus rhythm. [id number] score is 3 for age, heart failure, thromboembolism, so he would require long-term anticoagulation for stroke prophylaxis. Continue Eliquis. (4) Elevated troponin: Code(s): R79.89 - Other specified abnormal findings of blood chemistry Status: Acute Assessment and Plan: Mildly elevated and flat. No chest pain. Not an acute coronary syndrome. Likely demand ischemia from his PE, heart failure. (5) Hyperlipidemia: Code(s): E78.5 - Hyperlipidemia, unspecified Status: Acute Assessment and Plan: Will check lipid panel. If LDL not at goal -- recommend to switch his Simvastatin to Atorvastatin or Rosuvastatin instead. (6) Left bundle branch block: Code(s): I44.7 - Left bundle-branch block, unspecified Status: Acute Assessment and Plan: Unclear chronicity of the LBBB. Eventual ischemic evaluation as noted above. History of Present Illness History of Present Illness Consult date/time: 09/04/23 09:48 Requesting physician: Rosa Maria Jimenez MD Consult reason: atrial fibrillation Reason For Visit: Bilateral PE's w/Pulmonary Infarction Narrative: We are consulted for atrial fibrillation with RVR. This is a 72 year old male with hyperlipidemia, anxiety/depression who was admitted to [facility] on 08/31 for shortness of breath, pulmonary embolism. Around [place] time, patient was laid off of work and became very depressed. He was sleeping up to 10 hours a day. A few weeks ago, he developed postnasal drainage, decreased appetite, and decreased energy. He lost about 20lbs over a few weeks. Around 08/25, he developed shortness of breath and left sided pleuritic chest pain. He went to an urgent care and was diagnosed with a pneumonia. However, given the
[2023-09-04] MEDS: APIXABAN 5 MG TABLET 10 MG PO ×2 (10:34→20:27)
[2023-09-04] MEDS: PANTOPRAZOLE 40 MG TABLET PO (10:35)
[2023-09-04] MEDS: METOPROLOL SUCCINATE EXT REL 25 MG TABCR PO (10:36)
[2023-09-04] MEDS: SACUBITRIL/VALSARTAN 24-26 MG TABLET 1 TAB PO ×2 (10:36→20:27)
[2023-09-04] MEDS: CEFEPIME 2 GM/NS 50 ML 2 GM/50 ML BAG IVPB ×2 (10:37→20:47)
[2023-09-04 10:57] LABS: Cholesterol 130 mg/dL (0-200); HDL Direct 23 mg/dL; Triglycerides 116 mg/dL (<150)
[2023-09-04 11:09] LABS: LDL Cholesterol Direct 94 mg/dL
[2023-09-04 12:01] LABS: Glucose Point of Care 197 mg/dl (65-105)
[2023-09-04] MEDS: AMIODARONE 360 MG/D5W 200 ML 360 MG/200 ML BAG 16.67 MG IV CONT ×2 (12:05→23:59)
[2023-09-04 12:17] LABS: MRSA (PCR) NOT DETECTED (NOT DETECTE)
--- NOTE | 2023-09-04 16:20 | PM.IMPN ---
Progress Note: A&P Assessment and Plan (1) Acute respiratory failure: Code(s): J96.00 - Acute respiratory failure, unspecified whether with hypoxia or hypercapnia Status: Acute Assessment and Plan: Patient found to be hypoxic on admission. Related to PE and possibly pneumonia. Venous Doppler is negative pt weaned off oxygen (2) Elevated troponin: Code(s): R79.89 - Other specified abnormal findings of blood chemistry Status: Acute Assessment and Plan: Troponin elevated to 0.3 on admission and has trended down from there. Suspect related to right heart strain from clot burden. echo completed 1. Left ventricular chamber dimension is normal. ? 2. There is mildly increased left ventricular wall thickness. ? 3. Left ventricular septal wall motion is abnormal with septal motion related to bundle branch block. ? 4. Left ventricular systolic function is severely reduced, estimated at 20-25%. ? 5. The left ventricular diastolic function is grade I diastolic dysfunction. ? 6. Possible LV thrombus in the apex vs heavy trabeculation; cannot rule out thrombus. ? 7. Right ventricular chamber dimension is mildly enlarged. ? 8. Right ventricular systolic function is reduced. ? 9. Flattening of the ventricular septum in mid to late diastole consistent with right ventricular volume overload. ? 10. Left atrial chamber dimension is mildly enlarged. ? 11. Right atrial chamber dimension is mildly enlarged. ? 12. There is mild mitral valve regurgitation. ? 13. There is mild tricuspid valve regurgitation. startred entresto. STarted Toprol. Started spironolactone and SGLT-2 inhibitor. (3) Hyponatremia: Code(s): E87.1 - Hypo-osmolality and hyponatremia Status: Acute Assessment and Plan: Sodium 126 on admission. sodium is 129 today Consider also SIADH related to recent lung disease. (4) Hyperglycemia: Code(s): R73.9 - Hyperglycemia, unspecified Status: Acute Assessment and Plan: Check A1c. which is 5.4 pt is not a DM (5) Fever: Code(s): R50.9 - Fever, unspecified Status: Acute Assessment and Plan: Patient developed fever this morning. Could be related to PE but concern for pneumonia. COVID, RSV and influenza PCR were negative. Blood cultures are positive for gram positive cocci Continue iv cefepime day 2 (6) Pulmonary embolism and infarction: Code(s): I26.99 - Other pulmonary embolism without acute cor pulmonale Status: Acute Assessment and Plan: Patient presents with shortness of breath and found to have multi lobe PE with large clot burden and evidence of cardiac strain. Etiology unclear but could be related to his prolonged bedrest earlier this year. Consider occult cancer. Patient with murmur and rub possibly related to the right-sided strain. Heparin drip started yesterday. Venous dopplers are negative. Transition iv heparin to Eliquis. (7) Atrial fibrillation with RVR: Code(s): I48.91 - Unspecified atrial fibrillation Status: Acute Assessment and Plan: pt is on amiodarone drip and toprol orally Subjective Date/time seen: 09/04/23 16:20 Interval history: 72yo male with HLD and anxiety/depression here for shortness of breath.? Sometime around [place], patient states he was laid off from his work and became very depressed.? He states he was sleeping a lot up to 10 hours a day in bed.? He also had lost a close family relative recently as well.? Patient's mood was slowly improving.? He denies any suicidal homicidal ideation.? Denies any suicide attempt.? He was doing better up until about 2-3 weeks ago we started developed postnasal drainage symptoms as well as decreased appetite and decreased energy.? He has lost about 20 lb over the past few weeks.? No fever or chills.? About a week ago, patient developed cough and shortness of breath.? Developed left-sided pleuritic ch
[2023-09-04 16:32] LABS: Glucose Point of Care 119 mg/dl (65-105)
[2023-09-05] VITALS (16 sets, daily range): BP systolic 93–120; BP diastolic 56–74; PULSE 80–98; RESP 14–18; TEMP 36.7–37.5; O2SAT 92–96
[2023-09-05 01:01] LABS: Glucose Point of Care 123 mg/dl (65-105)
[2023-09-05 05:24] LABS: Anion Gap 3 mmol/L (8-16); Blood Urea Nitrogen 7 mg/dL (9-20); Calcium 7.8 mg/dL (8.4-10.2); Carbon Dioxide 26 mmol/L (22-30); Chloride 99 mmol/L (98-107); Estimated CRCL calculation 99 ml/min; Estimated Glomerular Filt Rate > 60; Glucose 193 mg/dL (65-110); Potassium 3.1 mmol/L (3.4-5.0); Sodium 128 mmol/L (137-145)
[2023-09-05 07:29] LABS: Glucose Point of Care 110 mg/dl (65-105)
--- NOTE | 2023-09-05 08:06 | PM.IMPN ---
Progress Note: A&P Assessment and Plan (1) Acute respiratory failure: Code(s): J96.00 - Acute respiratory failure, unspecified whether with hypoxia or hypercapnia Status: Acute Assessment and Plan: (2) Elevated troponin: Code(s): R79.89 - Other specified abnormal findings of blood chemistry Status: Acute (3) Hyponatremia: Code(s): E87.1 - Hypo-osmolality and hyponatremia Status: Acute Assessment and Plan: (4) Hyperglycemia: Code(s): R73.9 - Hyperglycemia, unspecified Status: Acute (5) Fever: Code(s): R50.9 - Fever, unspecified Status: Acute Assessment and Plan: (6) Pulmonary embolism and infarction: Code(s): I26.99 - Other pulmonary embolism without acute cor pulmonale Status: Acute Assessment and Plan: (7) Atrial fibrillation with RVR: Code(s): I48.91 - Unspecified atrial fibrillation Status: Acute Plan 72yo male with HLD and anxiety/depression here for shortness of breath.? Sometime around [place], patient states he was laid off from his work and became very depressed.? He states he was sleeping a lot up to 10 hours a day in bed.? He also had lost a close family relative recently as well.? Patient's mood was slowly improving.? He denies any suicidal or homicidal ideation.? Denies any suicide attempt.? He was doing better up until about 2-3 weeks ago we started developed postnasal drainage symptoms as well as decreased appetite and decreased energy.? He has lost about 20 lb over the past few weeks.? No fever or chills.? About a week ago, patient developed cough and shortness of breath.? Developed left-sided pleuritic chest pain.? He went to an urgent care center about 5 days prior to admission and they ordered x-ray for the next day and he was found to have infiltrates.? Results are not available at this time for me to review. His doctor started him on azithromycin and cefuroxime on August 27.? He felt better initially for about a day or so but then symptoms returned with increasing shortness of breath and cough that was occasionally productive of whitish sputum.? Presented to the ED on 09/01/2023. He was hypoxic on room air and was placed on 4 L nasal cannula with improvement in her saturations and mid upper 90s. He was tachycardic normotensive. EKG showed sinus tachycardia left bundle branch block no acute ischemic changes. WBC count 15.1 hemoglobin 12.3 hyponatremic at 1:26 a.m.. Troponin I was elevated at 0.308 lactate was normal proBNP 6400. Influenza RSV COVID negative. CTA was performed which showed multiple acute occlusive and nonocclusive emboli affecting all lung lobes. He has a large clot burden with evidence of right heart strain. He also has multiple segmental pulmonary infarcts although cannot exclude pneumonia. Patient was started on heparin drip. His also started on Rocephin doxycycline and vancomycin. Venous duplex were negative. Etiology unclear. Echo 09/02/2023: EF 20-25% grade 1 diastolic dysfunction possible LV thrombus in the apex versus heavy trabeculation. Flattening of the ventricular septum in mid to late diastole consistent with right ventricular volume overload. Heparin drip switched to oral apixaban. MRSA nares is negative and aunts vancomycin has been stopped. Blood culture 1 out of 4 positive for Staphylococcus epidermidis likely a contaminant. Hypoxic respiratory failure needing supplemental oxygen. Pulmonary consulted. Hyponatremia could be SIADH due to recent lung disease. Sodium level stable. Code status DNR Atrial fibrillation with RVR amiodarone drip started. Cardiology consulted converted to sinus rhythm on amiodarone drip. Started on p.o. amiodarone chads Vasc score 3 requiring long-term anticoagulation for stroke prophylaxis. Newly diagnosed heart failure with reduced ejection fraction. Started on Entresto and Toprol eventual addition of spironolactone
[2023-09-05] MEDS: AMIODARONE HCL 200 MG TABLET PO (08:54)
[2023-09-05] MEDS: POTASSIUM CHLORIDE 20 MEQ ER TABLET 40 MEQ PO (08:55)
[2023-09-05] MEDS: SACUBITRIL/VALSARTAN 24-26 MG TABLET 1 TAB PO ×2 (08:56→20:17)
[2023-09-05] MEDS: METOPROLOL SUCCINATE EXT REL 25 MG TABCR PO (08:56)
[2023-09-05] MEDS: PANTOPRAZOLE 40 MG TABLET PO (08:56)
[2023-09-05] MEDS: APIXABAN 5 MG TABLET 10 MG PO ×2 (08:56→20:17)
[2023-09-05] MEDS: ATORVASTATIN 40 MG TABLET 80 MG PO (08:56)
[2023-09-05] MEDS: CEFEPIME 2 GM/NS 50 ML 2 GM/50 ML BAG IVPB (08:57)
--- NOTE | 2023-09-05 09:57 | PM.PNCARD ---
Progress Note: A&P Assessment and Plan (1) Pulmonary embolism and infarction: Code(s): I26.99 - Other pulmonary embolism without acute cor pulmonale Status: Acute Assessment and Plan: Pulmonary consulted. Thought to be unprovoked. He was on Heparin drip, but now switched to Eliquis per the DVT/PE dosing. Currently receiving Eliquis 10mg BID, which will be completed on 09/09 in the AM. Order placed for Eliquis 5mg BID to start 09/09 PM. (2) Heart failure with reduced ejection fraction: Code(s): I50.20 - Unspecified systolic (congestive) heart failure Status: Acute Assessment and Plan: Echocardiogram shows: LVEF 20-25%. Possible LV thrombus in the LV apex vs heavy trabeculation, cannot rule out thrombus. RV is mildly enlarged with reduced function. Flattening of the ventricular septum in mid to late diastole consistent with RV volume overload. Mild biatrial enlargement. Mild MR. Mild TR This is a new diagnosis of heart failure with reduced LVEF for the patient. He is currently euvolemic. Started on standard GDMT with Entresto, Toprol. BP tolerating these medications so far. Will add spironolactone today Eventually add on SGLT-2 inhibitor. Eventually will need an ischemic evaluation, however, no concerns for an acute coronary syndrome at this time, so ischemic evaluation can be done as outpatient. Could obtain coronary CTA as an outpatient. Echo shows possible LV thrombus in the LV apex vs heavy trabeculation, cannot rule out thrombus -- can obtain cardiac MRI or cardiac CT as an outpatient to further clarify. Regardless, needs to be on anticoagulation anyways for his PE and AFIB, therefore, management would not change. No plan for LifeVest as he is a DNR (3) Atrial fibrillation with RVR: Code(s): I48.91 - Unspecified atrial fibrillation Status: Acute Assessment and Plan: New onset of atrial fibrillation overnight. Converted to sinus rhythm on Amiodarone drip. Now on p.o. amiodarone. Given the acute PE with large clot burden and HFrEF, he has a higher chance of going back into AFIB, therefore, will complete Amiodarone drip per protocol today and start PO Amiodarone tomorrow in order to hopefully maintain sinus rhythm. [id number] score is 3 for age, heart failure, thromboembolism, so he would require long-term anticoagulation for stroke prophylaxis. Continue Eliquis. (4) Elevated troponin: Code(s): R79.89 - Other specified abnormal findings of blood chemistry Status: Acute Assessment and Plan: Mildly elevated and flat. No chest pain. Not an acute coronary syndrome. Likely demand ischemia from his PE, heart failure. (5) Hyperlipidemia: Code(s): E78.5 - Hyperlipidemia, unspecified Status: Acute Assessment and Plan: LDL at goal (6) Left bundle branch block: Code(s): I44.7 - Left bundle-branch block, unspecified Status: Acute Assessment and Plan: Unclear chronicity of the LBBB. Eventual ischemic evaluation as noted above. Subjective Date/time seen: 09/05/23 09:57 Interval history: Cardiology follow up for atrial fibrillation, cardiomyopathy, LV thrombus Date of service : He feels okay today. Mild dyspnea with exertion but no shortness of breath at rest. Telemetry shows sinus rhythm Review of Systems Review of Systems: All systems reviewed & are unremarkable except as noted in HPI and below (HPI) Exam Const: General: comfortable and no acute distress HENMT: Mouth: Yes moist mucous membranes Eyes: General: appearance normal, both eyes and all related structures Sclera: sclerae normal Neck: Neck: supple Resp: Effort & Inspection: normal respiratory effort Auscultation: diminished lung sounds Cardio: Rate: regular rate Rhythm: regular rhythm Heart sounds: no murmurs Skin: General skin exam: normal color Neuro: Speech: normal speech Psych: Mental Status: mental status grossly
[2023-09-05 10:03] LABS: Procalcitonin 0.5 ng/mL
[2023-09-05] MEDS: SPIRONOLACTONE 25 MG TABLET PO (10:35)
[2023-09-05 12:01] LABS: Glucose Point of Care 158 mg/dl (65-105)
[2023-09-05] MEDS: DOXYCYCLINE HYCLATE 100 MG TABLET PO ×2 (12:43→20:18)
--- NOTE | 2023-09-05 14:51 | ECG_ITS ---
Measurements Intervals [place] Rate: 92 P: 37 [place]: 185 QRS: -38 QRSD: 173 T: 9 QT: 410 QTc: 510 Interpretive Statements SINUS RHYTHM LEFT AXIS DEVIATION LEFT BUNDLE BRANCH BLOCK ABNORMAL ECG COMPARED TO ECG 09/04/2023 01:54:14 SINUS RHYTHM NOW PRESENT Electronically Signed On 09-05-2023 15:57:09 CDT by Raffy Dalton D.O.
--- NOTE | 2023-09-05 15:57 | ECG_ITS ---
Measurements Intervals [place] Rate: 92 P: 32 SC: 179 QRS: -37 QRSD: 172 T: 7 QT: 420 QTc: 522 Interpretive Statements SINUS RHYTHM LEFT AXIS DEVIATION LEFT BUNDLE BRANCH BLOCK BASELINE ARTIFACT- I, II, III, AVR, AVL ABNORMAL ECG COMPARED TO ECG 09/05/2023 15:28:51 NO SIGNIFICANT CHANGES Electronically Signed On 09-08-2023 16:49:20 CDT by Raffy Dalton D.O.
[2023-09-05 16:29] LABS: Glucose Point of Care 136 mg/dl (65-105)
[2023-09-05 18:10] LABS: Glucose Point of Care 112 mg/dl (65-105)
[2023-09-05] MEDS: cefuroxime axetiL 250 MG TABLET 500 MG PO (20:18)
[2023-09-06] VITALS (14 sets, daily range): BP systolic 103–120; BP diastolic 61–74; PULSE 64–99; RESP 14–18; TEMP 36.1–37.7; O2SAT 90–94
[2023-09-06 00:24] LABS: Glucose Point of Care 113 mg/dl (65-105)
[2023-09-06 04:39] LABS: Basophils Percent Auto 0.3 % (0.2-1.2); Eosinophils Absolute Auto 0.2 K/mm3 (0-0.3); Eosinophils Percent Auto 1.6 % (0-4.4); Hematocrit 33.4 % (42.0-52.0); Immature Granulocyte Absolute 0.04 K/mm3 (0.00-0.031); Immature Granulocyte Percent A 0.4 % (0-0.5); Lymphocytes Percent Auto 10.1 % (18.3-44.2); Mean Corpuscular HGB Conc 32.9 g/dl (32-36); Mean Corpuscular Hemoglobin 30.5 pg (26-34); Mean Corpuscular Volume 92.5 fl (80-100); Monocytes Percent Auto 9.6 % (2.6-8.5); Neutrophils Absolute Auto 7.7 K/mm3 (1.3-6.7); Platelet Count Result 384 k/mm3 (150-375); Red Blood Count 3.61 M/mm3 (4.6-6.20); Red Cell Distribution Width 12.4 % (11.5-14.5); White Blood Count 9.9 K/mm3 (4.5-10.0)
[2023-09-06 04:59] LABS: Alanine Aminotransferase 24 U/L (6-50); Albumin Level 2.4 g/dL (3.5-5.1); Alkaline Phosphatase 79 U/L (38-126); Anion Gap 0 mmol/L (8-16); Aspartate Amino Transferase 29 U/L (17-59); Bilirubin,Total 0.7 mg/dL (0.2-1.3); Blood Urea Nitrogen 6 mg/dL (9-20); Carbon Dioxide 29 mmol/L (22-30); Chloride 102 mmol/L (98-107); Estimated CRCL calculation 99 ml/min; Estimated Glomerular Filt Rate > 60; Glucose 111 mg/dL (65-110); Potassium 3.6 mmol/L (3.4-5.0); Sodium 131 mmol/L (137-145)
[2023-09-06] MEDS: SACUBITRIL/VALSARTAN 24-26 MG TABLET 1 TAB PO ×2 (08:44→20:35)
[2023-09-06] MEDS: AMIODARONE HCL 200 MG TABLET PO (08:44)
[2023-09-06] MEDS: APIXABAN 5 MG TABLET 10 MG PO ×2 (08:44→20:35)
[2023-09-06] MEDS: DOXYCYCLINE HYCLATE 100 MG TABLET PO ×2 (08:45→20:35)
[2023-09-06] MEDS: PANTOPRAZOLE 40 MG TABLET PO (08:45)
[2023-09-06] MEDS: METOPROLOL SUCCINATE EXT REL 25 MG TABCR PO (08:45)
[2023-09-06] MEDS: ATORVASTATIN 40 MG TABLET 80 MG PO (08:46)
[2023-09-06] MEDS: SPIRONOLACTONE 25 MG TABLET PO (08:46)
[2023-09-06] MEDS: cefuroxime axetiL 250 MG TABLET 500 MG PO ×2 (08:46→20:35)
--- NOTE | 2023-09-06 11:50 | PM.PNCARD ---
Progress Note: A&P Assessment and Plan (1) Pulmonary embolism and infarction: Code(s): I26.99 - Other pulmonary embolism without acute cor pulmonale Status: Acute Assessment and Plan: Pulmonary consulted. Thought to be unprovoked. He was on Heparin drip, but now switched to Eliquis per the DVT/PE dosing. Currently receiving Eliquis 10mg BID, which will be completed on 09/09 in the AM. Order placed for Eliquis 5mg BID to start 09/09 PM. (2) Heart failure with reduced ejection fraction: Code(s): I50.20 - Unspecified systolic (congestive) heart failure Status: Acute Assessment and Plan: Echocardiogram shows: LVEF 20-25%. Possible LV thrombus in the LV apex vs heavy trabeculation, cannot rule out thrombus. RV is mildly enlarged with reduced function. Flattening of the ventricular septum in mid to late diastole consistent with RV volume overload. Mild biatrial enlargement. Mild MR. Mild TR This is a new diagnosis of heart failure with reduced LVEF for the patient. He is currently euvolemic. Continue Entresto, Toprol. And spironolactone. Eventually add on SGLT-2 inhibitor. Eventually will need an ischemic evaluation, however, no concerns for an acute coronary syndrome at this time, so ischemic evaluation can be done as outpatient. Could obtain coronary CTA as an outpatient. Echo shows possible LV thrombus in the LV apex vs heavy trabeculation, cannot rule out thrombus -- can obtain cardiac MRI or cardiac CT as an outpatient to further clarify. Regardless, needs to be on anticoagulation anyways for his PE and AFIB, therefore, management would not change. No plan for LifeVest as he is a DNR (3) Atrial fibrillation with RVR: Code(s): I48.91 - Unspecified atrial fibrillation Status: Acute Assessment and Plan: New onset of atrial fibrillation overnight. Converted to sinus rhythm on Amiodarone drip. Continue p.o. amiodarone Given the acute PE with large clot burden and HFrEF, he has a higher chance of going back into AFIB, therefore, will complete Amiodarone drip per protocol today and start PO Amiodarone tomorrow in order to hopefully maintain sinus rhythm. [id number] score is 3 for age, heart failure, thromboembolism, so he would require long-term anticoagulation for stroke prophylaxis. Continue Eliquis. (4) Elevated troponin: Code(s): R79.89 - Other specified abnormal findings of blood chemistry Status: Acute Assessment and Plan: Mildly elevated and flat. No chest pain. Not an acute coronary syndrome. Likely demand ischemia from his PE, heart failure. (5) Hyperlipidemia: Code(s): E78.5 - Hyperlipidemia, unspecified Status: Acute Assessment and Plan: LDL at goal (6) Left bundle branch block: Code(s): I44.7 - Left bundle-branch block, unspecified Status: Acute Assessment and Plan: Unclear chronicity of the LBBB. Eventual ischemic evaluation as noted above. And depending on response to GMT, may eventually need biventricular pacing/ICD (7) Hypokalemia: Code(s): E87.6 - Hypokalemia Status: Acute Assessment and Plan: KCL 40 mEq p.o. x1 Subjective Date/time seen: 09/06/23 11:50 Interval history: Cardiology follow up for atrial fibrillation, cardiomyopathy, LV thrombus Date of service 09/05/2023: He feels okay today. Mild dyspnea with exertion but no shortness of breath at rest. Telemetry shows sinus rhythm will Will Date of service 09/06/2023: Still short of breath but overall much better than previous. No chest pain. No syncope no edema Review of Systems Review of Systems: All systems reviewed & are unremarkable except as noted in HPI and below Constitutional: Constitutional: Denies body ache(s) Cardiovascular: Cardiovascular: Denies chest pain Respiratory: Respiratory: Reports dyspnea Gastrointestinal: Gastrointestinal: Denies abdominal pain Exam Const: General: comfortabl
[2023-09-06 12:11] LABS: Glucose Point of Care 118 mg/dl (65-105)
[2023-09-06] MEDS: POTASSIUM CHLORIDE 20 MEQ ER TABLET 40 MEQ PO (13:49)
--- NOTE | 2023-09-06 14:07 | PM.IMPN ---
Progress Note: A&P Assessment and Plan (1) Acute respiratory failure: Code(s): J96.00 - Acute respiratory failure, unspecified whether with hypoxia or hypercapnia Status: Acute (2) Elevated troponin: Code(s): R79.89 - Other specified abnormal findings of blood chemistry Status: Acute (3) Hyponatremia: Code(s): E87.1 - Hypo-osmolality and hyponatremia Status: Acute (4) Hyperglycemia: Code(s): R73.9 - Hyperglycemia, unspecified Status: Acute (5) Fever: Code(s): R50.9 - Fever, unspecified Status: Acute (6) Pulmonary embolism and infarction: Code(s): I26.99 - Other pulmonary embolism without acute cor pulmonale Status: Acute (7) Atrial fibrillation with RVR: Code(s): I48.91 - Unspecified atrial fibrillation Status: Acute Plan 72yo male with HLD and anxiety/depression here for shortness of breath.? Sometime around [place], patient states he was laid off from his work and became very depressed.? He states he was sleeping a lot up to 10 hours a day in bed.? He also had lost a close family relative recently as well.? Patient's mood was slowly improving.? He denies any suicidal or homicidal ideation.? Denies any suicide attempt.? He was doing better up until about 2-3 weeks ago we started developed postnasal drainage symptoms as well as decreased appetite and decreased energy.? He has lost about 20 lb over the past few weeks.? No fever or chills.? About a week ago, patient developed cough and shortness of breath.? Developed left-sided pleuritic chest pain.? He went to an urgent care center about 5 days prior to admission and they ordered x-ray for the next day and he was found to have infiltrates.? Results are not available at this time for me to review. His doctor started him on azithromycin and cefuroxime on August 27.? He felt better initially for about a day or so but then symptoms returned with increasing shortness of breath and cough that was occasionally productive of whitish sputum.? Presented to the ED on 09/01/2023. He was hypoxic on room air and was placed on 4 L nasal cannula with improvement in her saturations and mid upper 90s. He was tachycardic normotensive. EKG showed sinus tachycardia left bundle branch block no acute ischemic changes. WBC count 15.1 hemoglobin 12.3 hyponatremic at 1:26 a.m.. Troponin I was elevated at 0.308 lactate was normal proBNP 6400. Influenza RSV COVID negative. CTA was performed which showed multiple acute occlusive and nonocclusive emboli affecting all lung lobes. He has a large clot burden with evidence of right heart strain. He also has multiple segmental pulmonary infarcts although cannot exclude pneumonia. Patient was started on heparin drip. His also started on Rocephin doxycycline and vancomycin. Venous duplex were negative. Etiology unclear. Echo 09/02/2023: EF 20-25% grade 1 diastolic dysfunction possible LV thrombus in the apex versus heavy trabeculation. Flattening of the ventricular septum in mid to late diastole consistent with right ventricular volume overload. Heparin drip switched to oral apixaban. MRSA nares is negative and aunts vancomycin has been stopped. Blood culture 1 out of 4 positive for Staphylococcus epidermidis likely a contaminant. Hypoxic respiratory failure needing supplemental oxygen. Pulmonary consulted. Hyponatremia could be SIADH due to recent lung disease. Sodium level stable. Code status DNR Atrial fibrillation with RVR amiodarone drip started. Cardiology consulted converted to sinus rhythm on amiodarone drip. Started on p.o. amiodarone chads Vasc score 3 requiring long-term anticoagulation for stroke prophylaxis. Newly diagnosed heart failure with reduced ejection fraction. Started on Entresto and Toprol eventual addition of spironolactone and SGLT2 inhibitors. Will need an ischemic evaluation as an outpatient basis. No plan for LifeVest due to DNR status Possible LV thrombus in the
--- NOTE | 2023-09-06 15:00 | PC.NURSE ---
This patient, Saroj Wagoner, was received from [facility] on 09/06/23 at 1500. Patient/family oriented to unit policies and routines. Report received from KENNEDY Julien.
--- NOTE | 2023-09-06 15:00 | PC.NURSE ---
This patient, Saroj Wagoner, was transferred to [facility] via wheelchair on 09/06/23 at 1500. Personal belongings sent with patient. Report given to KENNEDY Weaver. Appropriate documentation sent with patient.
[2023-09-06 18:11] LABS: Pneumococcal Antigen Urine Not Detected (Not Detected)
--- NOTE | 2023-09-06 18:18 | PC.NURSE ---
On 09/06/23, the MANAGER CUSTOMER, Meg, provided care and completed [facility] on this patient. I have reviewed the MANAGER CUSTOMER's documentation and agree with the findings.
[2023-09-07] VITALS (9 sets, daily range): BP systolic 99–118; BP diastolic 60–73; PULSE 86–100; RESP 14–18; TEMP 36.6–37.4; O2SAT 93–94
[2023-09-07 00:05] LABS: Glucose Point of Care 115 mg/dl (65-105)
[2023-09-07 07:18] LABS: Glucose Point of Care 100 mg/dl (65-105)
[2023-09-07 07:48] LABS: Basophils Percent Auto 0.3 % (0.2-1.2); Eosinophils Absolute Auto 0.1 K/mm3 (0-0.3); Eosinophils Percent Auto 1.1 % (0-4.4); Hematocrit 35.7 % (42.0-52.0); Hemoglobin 11.7 g/dL (14.0-18.0); Immature Granulocyte Absolute 0.08 K/mm3 (0.00-0.031); Immature Granulocyte Percent A 0.7 % (0-0.5); Lymphocytes Absolute Auto 1.23 K/mm3 (0.9-3.2); Lymphocytes Percent Auto 10.2 % (18.3-44.2); Mean Corpuscular HGB Conc 32.8 g/dl (32-36); Mean Corpuscular Hemoglobin 30.5 pg (26-34); Mean Platelet Volume 9.1 fl (7.4-10.4); Monocytes Absolute Auto 1.1 K/mm3 (0.1-0.6); Monocytes Percent Auto 9.3 % (2.6-8.5); Neutrophils Absolute Auto 9.5 K/mm3 (1.3-6.7); Neutrophils Percent Auto 78.4 % (45.5-73.1); Platelet Count Result 445 k/mm3 (150-375); Red Blood Count 3.84 M/mm3 (4.6-6.20); Red Cell Distribution Width 12.5 % (11.5-14.5); White Blood Count 12.1 K/mm3 (4.5-10.0)
[2023-09-07 07:59] LABS: Alanine Aminotransferase 25 U/L (6-50); Albumin Level 2.7 g/dL (3.5-5.1); Alkaline Phosphatase 88 U/L (38-126); Anion Gap 3 mmol/L (8-16); Aspartate Amino Transferase 31 U/L (17-59); Bilirubin,Total 0.8 mg/dL (0.2-1.3); Blood Urea Nitrogen 6 mg/dL (9-20); Calcium 8.3 mg/dL (8.4-10.2); Carbon Dioxide 28 mmol/L (22-30); Chloride 101 mmol/L (98-107); Estimated CRCL calculation 84 ml/min; Estimated Glomerular Filt Rate > 60; Glucose 111 mg/dL (65-110); Magnesium 1.9 mg/dL (1.6-2.3); Potassium 3.7 mmol/L (3.4-5.0); Sodium 132 mmol/L (137-145)
[2023-09-07] MEDS: ATORVASTATIN 40 MG TABLET 80 MG PO (08:42)
[2023-09-07] MEDS: PANTOPRAZOLE 40 MG TABLET PO (08:42)
[2023-09-07] MEDS: DOXYCYCLINE HYCLATE 100 MG TABLET PO ×2 (08:43→21:42)
[2023-09-07] MEDS: APIXABAN 5 MG TABLET 10 MG PO ×2 (08:44→21:42)
[2023-09-07] MEDS: SACUBITRIL/VALSARTAN 24-26 MG TABLET 1 TAB PO ×2 (08:45→21:42)
[2023-09-07] MEDS: cefuroxime axetiL 250 MG TABLET 500 MG PO ×2 (08:45→21:42)
[2023-09-07] MEDS: SPIRONOLACTONE 25 MG TABLET PO (08:45)
[2023-09-07] MEDS: AMIODARONE HCL 200 MG TABLET PO (08:46)
[2023-09-07] MEDS: METOPROLOL SUCCINATE EXT REL 25 MG TABCR PO (08:46)
--- NOTE | 2023-09-07 10:36 | PM.PNCARD ---
Progress Note: A&P Assessment and Plan (1) Pulmonary embolism and infarction: Code(s): I26.99 - Other pulmonary embolism without acute cor pulmonale Status: Acute Assessment and Plan: Pulmonary consulted. Thought to be unprovoked. He was on Heparin drip, but now switched to Eliquis per the DVT/PE dosing. Currently receiving Eliquis 10mg BID, which will be completed on 09/09 in the AM. Order placed for Eliquis 5mg BID to start 09/09 PM. (2) Heart failure with reduced ejection fraction: Code(s): I50.20 - Unspecified systolic (congestive) heart failure Status: Acute Assessment and Plan: Echocardiogram shows: LVEF 20-25%. Possible LV thrombus in the LV apex vs heavy trabeculation, cannot rule out thrombus. RV is mildly enlarged with reduced function. Flattening of the ventricular septum in mid to late diastole consistent with RV volume overload. Mild biatrial enlargement. Mild MR. Mild TR This is a new diagnosis of heart failure with reduced LVEF for the patient. He is currently euvolemic. Continue Entresto, Toprol. And spironolactone. Eventually add on SGLT-2 inhibitor. Eventually will need an ischemic evaluation, however, no concerns for an acute coronary syndrome at this time, so ischemic evaluation can be done as outpatient. Could obtain coronary CTA as an outpatient. Echo shows possible LV thrombus in the LV apex vs heavy trabeculation, cannot rule out thrombus -- can obtain cardiac MRI or cardiac CT as an outpatient to further clarify. Regardless, needs to be on anticoagulation anyways for his PE and AFIB, therefore, management would not change. No plan for LifeVest as he is a DNR (3) Atrial fibrillation with RVR: Code(s): I48.91 - Unspecified atrial fibrillation Status: Acute Assessment and Plan: New onset of atrial fibrillation overnight. Converted to sinus rhythm on Amiodarone drip. Continue p.o. amiodarone Given the acute PE with large clot burden and HFrEF, he has a higher chance of going back into AFIB, therefore, will complete Amiodarone drip per protocol today and start PO Amiodarone tomorrow in order to hopefully maintain sinus rhythm. [id number] score is 3 for age, heart failure, thromboembolism, so he would require long-term anticoagulation for stroke prophylaxis. Continue Eliquis. (4) Elevated troponin: Code(s): R79.89 - Other specified abnormal findings of blood chemistry Status: Acute Assessment and Plan: Mildly elevated and flat. No chest pain. Not an acute coronary syndrome. Likely demand ischemia from his PE, heart failure. (5) Hyperlipidemia: Code(s): E78.5 - Hyperlipidemia, unspecified Status: Acute Assessment and Plan: LDL at goal (6) Left bundle branch block: Code(s): I44.7 - Left bundle-branch block, unspecified Status: Acute Assessment and Plan: Unclear chronicity of the LBBB. Eventual ischemic evaluation as noted above. And depending on response to GMT, may eventually need biventricular pacing/ICD (7) Hypokalemia: Code(s): E87.6 - Hypokalemia Status: Acute Assessment and Plan: Additional dose of potassium chloride 40 mg p.o. x1 today as his potassium is 3.7 Subjective Date/time seen: 09/07/23 10:36 Interval history: Cardiology follow up for atrial fibrillation, cardiomyopathy, LV thrombus Date of service 09/05/2023: He feels okay today. Mild dyspnea with exertion but no shortness of breath at rest. Telemetry shows sinus rhythm will Will Date of service 09/06/2023: Still short of breath but overall much better than previous. No chest pain. No syncope no edema Date of service 09/07/2023: Complaining of some URI type of symptoms. No chest pain. No significant shortness of breath. Review of Systems Review of Systems: All systems reviewed & are unremarkable except as noted in HPI and below Constitutional: Constitutional: Denies body ache(s) Cardio
[2023-09-07 11:36] LABS: Glucose Point of Care 133 mg/dl (65-105)
[2023-09-07] MEDS: POTASSIUM CHLORIDE 20 MEQ ER TABLET 40 MEQ PO (12:23)
--- NOTE | 2023-09-07 14:53 | PC.NURSE ---
On 09/07/23, the OSD CLERK, Meg, provided care and completed [facility] documentation on this patient. I have reviewed the OSD CLERK's documentation and agree with the findings
--- NOTE | 2023-09-07 17:01 | P.PNIM_ITS ---
Progress Note: A&P Assessment and Plan (1) Acute respiratory failure: Code(s): J96.00 - Acute respiratory failure, unspecified whether with hypoxia or hypercapnia Status: Acute (2) Elevated troponin: Code(s): R79.89 - Other specified abnormal findings of blood chemistry Status: Acute (3) Hyponatremia: Code(s): E87.1 - Hypo-osmolality and hyponatremia Status: Acute (4) Hyperglycemia: Code(s): R73.9 - Hyperglycemia, unspecified Status: Acute (5) Fever: Code(s): R50.9 - Fever, unspecified Status: Acute (6) Pulmonary embolism and infarction: Code(s): I26.99 - Other pulmonary embolism without acute cor pulmonale Status: Acute (7) Atrial fibrillation with RVR: Code(s): I48.91 - Unspecified atrial fibrillation Status: Acute Plan 72yo male with HLD and anxiety/depression here for shortness of breath.? Sometime around [place], patient states he was laid off from his work and became very depressed.? He states he was sleeping a lot up to 10 hours a day in bed.? He also had lost a close family relative recently as well.? Patient's mood was slowly improving.? He denies any suicidal or homicidal ideation.? Denies any suicide attempt.? He was doing better up until about 2-3 weeks ago we started developed postnasal drainage symptoms as well as decreased appetite and decreased energy.? He has lost about 20 lb over the past few weeks.? No fever or chills.? About a week ago, patient developed cough and shortness of breath.? Developed left-sided pleuritic chest pain.? He went to an urgent care center about 5 days prior to admission and they ordered x-ray for the next day and he was found to have infiltrates.? Results are not available at this time for me to review. His doctor started him on azithromycin and cefuroxime on August 27.? He felt better initially for about a day or so but then symptoms returned with increasing shortness of breath and cough that was occasionally productive of whitish sputum.? Presented to the ED on 09/01/2023. He was hypoxic on room air and was placed on 4 L nasal cannula with improvement in her saturations and mid upper 90s. He was tachycardic normotensive. EKG showed sinus tachycardia left bundle branch block no acute ischemic changes. WBC count 15.1 hemoglobin 12.3 hyponatremic at 1:26 a.m.. Troponin I was elevated at 0.308 lactate was normal proBNP 6400. Influenza RSV COVID negative. CTA was performed which showed multiple acute occlusive and nonocclusive emboli affecting all lung lobes. He has a large clot burden with evidence of right heart strain. He also has multiple segmental pulmonary infarcts although cannot exclude pneumonia. Patient was started on heparin drip. His also started on Rocephin doxycycline and vancomycin. Venous duplex were negative. Etiology unclear. Echo 09/02/2023: EF 20-25% grade 1 diastolic dysfunction possible LV thrombus in the apex versus heavy trabeculation. Flattening of the ventricular septum in mid to late diastole consistent with right ventricular volume overload. Heparin drip switched to oral apixaban. MRSA nares is negative and aunts vancomycin has been stopped. Blood culture 1 out of 4 positive for Staphylococcus epidermidis likely a contaminant. Hypoxic respiratory failure needing supplemental oxygen. Pulmonary consulted. Tapered down to room air Hyponatremia could be SIADH due to recent lung disease. Sodium level stable. Code status DNR Atrial fibrillation with RVR amiodarone drip started. Cardiology consulted converted to sinus rhythm on amiodarone drip. Started on p.o. amiodarone chads Vasc score 3 requiring long-term anticoagulation for stroke prophyla
[2023-09-08] VITALS (12 sets, daily range): BP systolic 90–120; BP diastolic 59–73; PULSE 91–103; RESP 16–18; TEMP 36.3–36.8; O2SAT 92–95
[2023-09-08 06:51] LABS: Basophils Absolute Auto 0.1 K/mm3 (0.0-0.1); Basophils Percent Auto 0.3 % (0.2-1.2); Eosinophils Absolute Auto 0.2 K/mm3 (0-0.3); Eosinophils Percent Auto 1.5 % (0-4.4); Hemoglobin 12.9 g/dL (14.0-18.0); Immature Granulocyte Absolute 0.07 K/mm3 (0.00-0.031); Immature Granulocyte Percent A 0.5 % (0-0.5); Lymphocytes Absolute Auto 1.89 K/mm3 (0.9-3.2); Lymphocytes Percent Auto 12.7 % (18.3-44.2); Mean Corpuscular HGB Conc 32.3 g/dl (32-36); Mean Corpuscular Hemoglobin 30.4 pg (26-34); Mean Corpuscular Volume 94.1 fl (80-100); Mean Platelet Volume 9.1 fl (7.4-10.4); Monocytes Absolute Auto 1.2 K/mm3 (0.1-0.6); Monocytes Percent Auto 8.3 % (2.6-8.5); Neutrophils Absolute Auto 11.5 K/mm3 (1.3-6.7); Neutrophils Percent Auto 76.7 % (45.5-73.1); Platelet Count Result 543 k/mm3 (150-375); Red Blood Count 4.25 M/mm3 (4.6-6.20); Red Cell Distribution Width 12.6 % (11.5-14.5); White Blood Count 14.9 K/mm3 (4.5-10.0)
[2023-09-08 07:06] LABS: Alanine Aminotransferase 32 U/L (6-50); Albumin Level 3.1 g/dL (3.5-5.1); Alkaline Phosphatase 98 U/L (38-126); Anion Gap 8 mmol/L (8-16); Aspartate Amino Transferase 36 U/L (17-59); Bilirubin,Total 0.9 mg/dL (0.2-1.3); Blood Urea Nitrogen 8 mg/dL (9-20); Calcium 8.7 mg/dL (8.4-10.2); Carbon Dioxide 27 mmol/L (22-30); Chloride 99 mmol/L (98-107); Estimated CRCL calculation 84 ml/min; Estimated Glomerular Filt Rate > 60; Glucose 104 mg/dL (65-110); Magnesium 2.1 mg/dL (1.6-2.3); Sodium 134 mmol/L (137-145)
[2023-09-08] MEDS: cefuroxime axetiL 250 MG TABLET 500 MG PO ×2 (08:27→22:16)
[2023-09-08] MEDS: SPIRONOLACTONE 25 MG TABLET PO (08:28)
[2023-09-08] MEDS: PANTOPRAZOLE 40 MG TABLET PO (08:28)
[2023-09-08] MEDS: AMIODARONE HCL 200 MG TABLET PO (08:28)
[2023-09-08] MEDS: METOPROLOL SUCCINATE EXT REL 25 MG TABCR PO (08:28)
[2023-09-08] MEDS: APIXABAN 5 MG TABLET 10 MG PO ×2 (08:28→22:17)
[2023-09-08] MEDS: ATORVASTATIN 40 MG TABLET 80 MG PO (08:29)
[2023-09-08] MEDS: SACUBITRIL/VALSARTAN 24-26 MG TABLET 1 TAB PO (08:29)
[2023-09-08] MEDS: DOXYCYCLINE HYCLATE 100 MG TABLET PO ×2 (08:29→22:16)
--- NOTE | 2023-09-08 13:05 | PM.IMPN ---
Progress Note: A&P Assessment and Plan (1) Acute respiratory failure: Code(s): J96.00 - Acute respiratory failure, unspecified whether with hypoxia or hypercapnia Status: Acute (2) Elevated troponin: Code(s): R79.89 - Other specified abnormal findings of blood chemistry Status: Acute (3) Hyponatremia: Code(s): E87.1 - Hypo-osmolality and hyponatremia Status: Acute (4) Hyperglycemia: Code(s): R73.9 - Hyperglycemia, unspecified Status: Acute (5) Fever: Code(s): R50.9 - Fever, unspecified Status: Acute (6) Pulmonary embolism and infarction: Code(s): I26.99 - Other pulmonary embolism without acute cor pulmonale Status: Acute (7) Atrial fibrillation with RVR: Code(s): I48.91 - Unspecified atrial fibrillation Status: Acute Plan 72 yo male with HLD and anxiety/depression here for shortness of breath.? Sometime around [place], patient states he was laid off from his work and became very depressed.? He states he was sleeping a lot up to 10 hours a day in bed.? He also had lost a close family relative recently as well.? Patient's mood was slowly improving.? He denies any suicidal or homicidal ideation.? Denies any suicide attempt.? He was doing better up until about 2-3 weeks ago we started developed postnasal drainage symptoms as well as decreased appetite and decreased energy.? He has lost about 20 lb over the past few weeks.? No fever or chills.? About a week ago, patient developed cough and shortness of breath.? Developed left-sided pleuritic chest pain.? He went to an urgent care center about 5 days prior to admission and they ordered x-ray for the next day and he was found to have infiltrates.? His doctor started him on azithromycin and cefuroxime on August 27.? He felt better initially for about a day or so but then symptoms returned with increasing shortness of breath and cough that was occasionally productive of whitish sputum.? Presented to the ED on 09/01/2023. He was hypoxic on room air and was placed on 4 L nasal cannula with improvement in her saturations and mid upper 90s. He was tachycardic normotensive. EKG showed sinus tachycardia left bundle branch block no acute ischemic changes. WBC count 15.1 hemoglobin 12.3 hyponatremic at 1:26 a.m.. Troponin I was elevated at 0.308 lactate was normal proBNP 6400. Influenza RSV COVID negative. CTA was performed which showed multiple acute occlusive and nonocclusive emboli affecting all lung lobes. He has a large clot burden with evidence of right heart strain. He also has multiple segmental pulmonary infarcts although cannot exclude pneumonia. Patient was started on heparin drip. His also started on Rocephin doxycycline and vancomycin. Venous duplex were negative. Etiology unclear. Echo 09/02/2023: EF 20-25% grade 1 diastolic dysfunction possible LV thrombus in the apex versus heavy trabeculation. Flattening of the ventricular septum in mid to late diastole consistent with right ventricular volume overload. Heparin drip switched to oral apixaban. MRSA nares is negative and aunts vancomycin has been stopped. Blood culture 1 out of 4 positive for Staphylococcus epidermidis likely a contaminant. Hypoxic respiratory failure needing supplemental oxygen. Pulmonary consulted. Tapered down to room air Leukocytosis slowly worsening will recheck chest x-ray today. Remains on cefuroxime and doxycycline. Hyponatremia could be SIADH due to recent lung disease. Sodium level stable. Code status DNR Atrial fibrillation with RVR amiodarone drip started. Cardiology consulted converted to sinus rhythm on amiodarone drip. Started on p.o. amiodarone chads Vasc score 3 requiring long-term anticoagulation for stroke prophylaxis. Newly diagnosed heart failure with reduced ejection fraction. Started on Entresto and Toprol eventual addition of spironolactone and SGLT2 inhibitors. Will need an ischemic evaluation as an outpatien
--- NOTE | 2023-09-08 13:08 | PM.PNCARD ---
Progress Note: A&P Assessment and Plan (1) Pulmonary embolism and infarction: Code(s): I26.99 - Other pulmonary embolism without acute cor pulmonale Status: Acute Assessment and Plan: Pulmonary consulted. Thought to be unprovoked. He was on Heparin drip, but now switched to Eliquis per the DVT/PE dosing. Currently receiving Eliquis 10mg BID, which will be completed on 09/09 in the AM. Order placed for Eliquis 5mg BID to start 09/09 PM. (2) Heart failure with reduced ejection fraction: Code(s): I50.20 - Unspecified systolic (congestive) heart failure Status: Acute Assessment and Plan: Echocardiogram shows: LVEF 20-25%. Possible LV thrombus in the LV apex vs heavy trabeculation, cannot rule out thrombus. RV is mildly enlarged with reduced function. Flattening of the ventricular septum in mid to late diastole consistent with RV volume overload. Mild biatrial enlargement. Mild MR. Mild TR This is a new diagnosis of heart failure with reduced LVEF for the patient. He is currently euvolemic. Continue Entresto, Toprol. Continue spironolactone Eventually add on SGLT-2 inhibitor. Eventually will need an ischemic evaluation, however, no concerns for an acute coronary syndrome at this time, so ischemic evaluation can be done as outpatient. Could obtain coronary CTA as an outpatient. Echo shows possible LV thrombus in the LV apex vs heavy trabeculation, cannot rule out thrombus -- can obtain cardiac MRI or cardiac CT as an outpatient to further clarify. Regardless, needs to be on anticoagulation anyway for his PE and AFIB, therefore, management would not change. Currently, no plan for LifeVest as he is a DNR. I did discuss this with him again today. (3) Atrial fibrillation with RVR: Code(s): I48.91 - Unspecified atrial fibrillation Status: Acute Assessment and Plan: New onset of atrial fibrillation earlier during this hospitalization. Converted to sinus rhythm on Amiodarone drip. Continue p.o. amiodarone maintenance dose of 200mg daily. [id number] score is 3 for age, heart failure, thromboembolism, so he would require long-term anticoagulation for stroke prophylaxis. Continue Eliquis. (4) Elevated troponin: Code(s): R79.89 - Other specified abnormal findings of blood chemistry Status: Acute Assessment and Plan: Mildly elevated and flat. No chest pain. Not an acute coronary syndrome. Likely demand ischemia from his PE, heart failure. (5) Hyperlipidemia: Code(s): E78.5 - Hyperlipidemia, unspecified Status: Acute Assessment and Plan: LDL at goal (6) Left bundle branch block: Code(s): I44.7 - Left bundle-branch block, unspecified Status: Acute Assessment and Plan: Unclear chronicity of the LBBB. Eventual ischemic evaluation as noted above. And depending on response to GMT, may eventually need biventricular pacing/ICD (7) Hypokalemia: Code(s): E87.6 - Hypokalemia Status: Acute Assessment and Plan: K+ 4.0 today. Subjective Date/time seen: 09/08/23 13:08 Interval history: Cardiology follow up for atrial fibrillation, cardiomyopathy, LV thrombus Date of service 09/05/2023: He feels okay today. Mild dyspnea with exertion but no shortness of breath at rest. Telemetry shows sinus rhythm. Date of service 09/06/2023: Still short of breath but overall much better than previous. No chest pain. No syncope no edema Date of service 09/07/2023: Complaining of some URI type of symptoms. No chest pain. No significant shortness of breath. Date of service 09/08/2023: Feels okay. Still complaining of productive cough. No shortness of breath or chest pain. Feels occasional palpitations. Review of Systems Review of Systems: All systems reviewed & are unremarkable except as noted in HPI and below Constitutional: Constitutional: Denies body ache(s) Cardiovascular: Cardiovascular: Denies chest pain
[2023-09-09] VITALS (12 sets, daily range): BP systolic 100–113; BP diastolic 60–70; PULSE 89–106; RESP 16–19; TEMP 36.3–37.1; O2SAT 91–98
[2023-09-09 00:30] LABS: Legionella pneumophila Ag Ur Not Detected (Not Detected)
[2023-09-09 07:10] LABS: Basophils Percent Auto 0.4 % (0.2-1.2); Eosinophils Absolute Auto 0.2 K/mm3 (0-0.3); Eosinophils Percent Auto 1.9 % (0-4.4); Hematocrit 34.6 % (42.0-52.0); Hemoglobin 11.4 g/dL (14.0-18.0); Immature Granulocyte Absolute 0.07 K/mm3 (0.00-0.031); Immature Granulocyte Percent A 0.7 % (0-0.5); Lymphocytes Absolute Auto 0.99 K/mm3 (0.9-3.2); Lymphocytes Percent Auto 9.2 % (18.3-44.2); Mean Corpuscular HGB Conc 32.9 g/dl (32-36); Mean Corpuscular Hemoglobin 30.6 pg (26-34); Mean Corpuscular Volume 92.8 fl (80-100); Monocytes Percent Auto 9.5 % (2.6-8.5); Neutrophils Absolute Auto 8.4 K/mm3 (1.3-6.7); Neutrophils Percent Auto 78.3 % (45.5-73.1); Platelet Count Result 410 k/mm3 (150-375); Red Blood Count 3.73 M/mm3 (4.6-6.20); Red Cell Distribution Width 12.6 % (11.5-14.5); White Blood Count 10.8 K/mm3 (4.5-10.0)
[2023-09-09 07:29] LABS: Alanine Aminotransferase 34 U/L (6-50); Albumin Level 2.7 g/dL (3.5-5.1); Alkaline Phosphatase 84 U/L (38-126); Anion Gap 3 mmol/L (8-16); Aspartate Amino Transferase 35 U/L (17-59); Bilirubin,Total 0.7 mg/dL (0.2-1.3); Blood Urea Nitrogen 11 mg/dL (9-20); Calcium 8.4 mg/dL (8.4-10.2); Carbon Dioxide 28 mmol/L (22-30); Chloride 100 mmol/L (98-107); Estimated CRCL calculation 123 ml/min; Estimated Glomerular Filt Rate > 60; Glucose 106 mg/dL (65-110); Magnesium 1.9 mg/dL (1.6-2.3); Potassium 4.3 mmol/L (3.4-5.0); Sodium 131 mmol/L (137-145)
[2023-09-09] MEDS: DOXYCYCLINE HYCLATE 100 MG TABLET PO ×2 (09:15→20:41)
[2023-09-09] MEDS: AMIODARONE HCL 200 MG TABLET PO (09:15)
[2023-09-09] MEDS: APIXABAN 5 MG TABLET 10 MG PO ×2 (09:15→20:41)
[2023-09-09] MEDS: ATORVASTATIN 40 MG TABLET 80 MG PO (09:15)
[2023-09-09] MEDS: SACUBITRIL/VALSARTAN 24-26 MG TABLET 1 TAB PO (09:15)
[2023-09-09] MEDS: PANTOPRAZOLE 40 MG TABLET PO (09:15)
[2023-09-09] MEDS: SPIRONOLACTONE 25 MG TABLET PO (09:16)
[2023-09-09] MEDS: METOPROLOL SUCCINATE EXT REL 25 MG TABCR PO (09:16)
[2023-09-09] MEDS: FLUTICASONE PROPIONATE 0.05% NA SPR 16 GM BTL (*BKC) 1 SPRAY NASAL ×2 (11:44→20:42)
--- NOTE | 2023-09-09 12:21 | PM.IMPN ---
Progress Note: A&P Assessment and Plan (1) Acute respiratory failure: Code(s): J96.00 - Acute respiratory failure, unspecified whether with hypoxia or hypercapnia Status: Acute (2) Elevated troponin: Code(s): R79.89 - Other specified abnormal findings of blood chemistry Status: Acute (3) Hyponatremia: Code(s): E87.1 - Hypo-osmolality and hyponatremia Status: Acute (4) Hyperglycemia: Code(s): R73.9 - Hyperglycemia, unspecified Status: Acute (5) Fever: Code(s): R50.9 - Fever, unspecified Status: Acute (6) Pulmonary embolism and infarction: Code(s): I26.99 - Other pulmonary embolism without acute cor pulmonale Status: Acute (7) Atrial fibrillation with RVR: Code(s): I48.91 - Unspecified atrial fibrillation Status: Acute Plan 72 yo male with HLD and anxiety/depression here for shortness of breath.? Sometime around [place], patient states he was laid off from his work and became very depressed.? He states he was sleeping a lot up to 10 hours a day in bed.? He also had lost a close family relative recently as well.? Patient's mood was slowly improving.? He denies any suicidal or homicidal ideation.? Denies any suicide attempt.? He was doing better up until about 2-3 weeks ago we started developed postnasal drainage symptoms as well as decreased appetite and decreased energy.? He has lost about 20 lb over the past few weeks.? No fever or chills.? About a week ago, patient developed cough and shortness of breath.? Developed left-sided pleuritic chest pain.? He went to an urgent care center about 5 days prior to admission and they ordered x-ray for the next day and he was found to have infiltrates.? His doctor started him on azithromycin and cefuroxime on August 27.? He felt better initially for about a day or so but then symptoms returned with increasing shortness of breath and cough that was occasionally productive of whitish sputum.? Presented to the ED on 09/01/2023. He was hypoxic on room air and was placed on 4 L nasal cannula with improvement in her saturations and mid upper 90s. He was tachycardic normotensive. EKG showed sinus tachycardia left bundle branch block no acute ischemic changes. WBC count 15.1 hemoglobin 12.3 hyponatremic at 1:26 a.m.. Troponin I was elevated at 0.308 lactate was normal proBNP 6400. Influenza RSV COVID negative. CTA was performed which showed multiple acute occlusive and nonocclusive emboli affecting all lung lobes. He has a large clot burden with evidence of right heart strain. He also has multiple segmental pulmonary infarcts although cannot exclude pneumonia. Patient was started on heparin drip. His also started on Rocephin doxycycline and vancomycin. Venous duplex were negative. Etiology unclear. Echo 09/02/2023: EF 20-25% grade 1 diastolic dysfunction possible LV thrombus in the apex versus heavy trabeculation. Flattening of the ventricular septum in mid to late diastole consistent with right ventricular volume overload. Heparin drip switched to oral apixaban. MRSA nares is negative and aunts vancomycin has been stopped. Blood culture 1 out of 4 positive for Staphylococcus epidermidis likely a contaminant. Hypoxic respiratory failure needing supplemental oxygen. Pulmonary consulted. Tapered down to room air Leukocytosis worsened 09/08/2023 chest x-ray followed by CT chest was performed which was reviewed. He has finished cefuroxime and will finish doxycycline soon as ordered. Hyponatremia could be SIADH due to recent lung disease. Sodium level stable. Code status DNR Atrial fibrillation with RVR amiodarone drip started. Cardiology consulted converted to sinus rhythm on amiodarone drip. Started on p.o. amiodarone chads Vasc score 3 requiring long-term anticoagulation for stroke prophylaxis. Newly diagnosed heart failure with reduced ejection fraction. Started on Entresto and Toprol eventual addition of spironolactone
[2023-09-09 13:32] LABS: Bacteria Urine None Seen /hpf; Non Pathogenic Casts 0-2; RBC Urine 0-2 /hpf (0-2); Squamous Epithelial Cell Urine None Seen /hpf (Few); WBC Urine 0-5 /hpf (0-3)
--- NOTE | 2023-09-09 13:48 | PM.PNCARD ---
Progress Note: A&P Assessment and Plan (1) Pulmonary embolism and infarction: Code(s): I26.99 - Other pulmonary embolism without acute cor pulmonale Status: Acute Assessment and Plan: Pulmonary consulted. Thought to be unprovoked. He was on Heparin drip, but now switched to Eliquis per the DVT/PE dosing. Currently receiving Eliquis 10mg BID, which will be completed on 09/09 in the AM. Order placed for Eliquis 5mg BID to start 09/09 PM. (2) Heart failure with reduced ejection fraction: Code(s): I50.20 - Unspecified systolic (congestive) heart failure Status: Acute Assessment and Plan: Echocardiogram shows: LVEF 20-25%. Possible LV thrombus in the LV apex vs heavy trabeculation, cannot rule out thrombus. RV is mildly enlarged with reduced function. Flattening of the ventricular septum in mid to late diastole consistent with RV volume overload. Mild biatrial enlargement. Mild MR. Mild TR This is a new diagnosis of heart failure with reduced LVEF for the patient. He is currently euvolemic. Continue Entresto, Toprol, Spironolactone. Eventually add on SGLT-2 inhibitor. Eventually will need an ischemic evaluation, however, no concerns for an acute coronary syndrome at this time, so ischemic evaluation can be done as outpatient. Could obtain coronary CTA as an outpatient. Echo shows possible LV thrombus in the LV apex vs heavy trabeculation, cannot rule out thrombus -- can obtain cardiac MRI or cardiac CT as an outpatient to further clarify. Regardless, needs to be on anticoagulation anyway for his PE and AFIB, therefore, management would not change. Patient would like a Life Vest. Order placed. (3) Atrial fibrillation with RVR: Code(s): I48.91 - Unspecified atrial fibrillation Status: Acute Assessment and Plan: New onset of atrial fibrillation earlier during this hospitalization. Converted to sinus rhythm on Amiodarone drip. Continue PO Amiodarone maintenance dose of 200mg daily. [id number] score is 3 for age, heart failure, thromboembolism, so he would require long-term anticoagulation for stroke prophylaxis. Continue Eliquis. (4) Elevated troponin: Code(s): R79.89 - Other specified abnormal findings of blood chemistry Status: Acute Assessment and Plan: Mildly elevated and flat. No chest pain. Not an acute coronary syndrome. Likely demand ischemia from his PE, heart failure. (5) Hyperlipidemia: Code(s): E78.5 - Hyperlipidemia, unspecified Status: Acute Assessment and Plan: LDL at goal (6) Left bundle branch block: Code(s): I44.7 - Left bundle-branch block, unspecified Status: Acute Assessment and Plan: Unclear chronicity of the LBBB. Eventual ischemic evaluation as noted above. And depending on response to GDMT, may eventually need biventricular pacing/ICD. Plan Life Vest order placed. Once patient receives Life Vest, okay to discharge home from my standpoint. Will arrange outpatient follow up in our office. Recommendations and plan discussed with Hospitalist. Cardiology will sign off at this time. Please call us back if needed. Subjective Date/time seen: 09/09/23 13:48 Interval history: Reason for visit: CHF, AFIB HPI: We are consulted for atrial fibrillation with RVR. This is a 72 year old male with hyperlipidemia, anxiety/depression who was admitted to [facility] on 08/31 for shortness of breath, pulmonary embolism. Around [place] time, patient was laid off of work and became very depressed. He was sleeping up to 10 hours a day. A few weeks ago, he developed postnasal drainage, decreased appetite, and decreased energy. He lost about 20lbs over a few weeks. Around 08/25, he developed shortness of breath and left sided pleuritic chest pain. He went to an urgent care and was diagnosed with a pneumonia. However, given the ongoing shortness of breath, he came to [facility] on 08/31 for further evaluation. P
[2023-09-09 14:29] LABS: Appearance Urine Clear (Clear); Bilirubin Urine Negative (Negative); Blood Urine Negative (Negative); Color Urine Yellow (Yellow); Glucose Urine UA Negative (Negative); Ketones Urine Negative (Negative); Leukocyte Esterase Ur Negative LEU/UL (Negative); Nitrate Urine Negative (Negative); Protein Urine 1+ mg/dL (Negative); Specific Grav Ur 1.015 (1.001-1.035); Urobilinogen Urine 0.2 mg/dL (<2.0)
[2023-09-09 14:30] LABS: Add Urine Microscopic? YES
--- NOTE | 2023-09-09 14:43 | PM.DS ---
DS: Summary Time Spent with Patient Time attestation: Total time spent providing and/or coordinating discharge services: DS: Data Data Completed and Pending Labs on day of discharge: Labs from last 24 hours 09/09/23 09/09/23 09/04/23 12:09 06:36 13:51 WBC 10.8 H RBC 3.73 L Hgb 11.4 L Hct 34.6 L MCV 92.8 MCH 30.6 MCHC 32.9 RDW 12.6 Plt Count 410 H MPV 9.0 Immature Gran % (Auto) 0.7 H Neut % (Auto) 78.3 H Lymph % (Auto) 9.2 L [place] % (Auto) 9.5 H Eos % (Auto) 1.9 Baso % (Auto) 0.4 Lymph # (Auto) 0.99 [place] # (Auto) 1.0 H Eos # (Auto) 0.2 Baso # (Auto) 0.0 Abs Immat Gran (auto) 0.07 H Absolute Neuts (auto) 8.4 H Absolute Nucleated RBC 0.000 Nucleated RBC % 0.0 Sodium 131 L Potassium 4.3 Chloride 100 Carbon Dioxide 28 Anion Gap 3 L BUN 11 Creatinine 0.60 L Estim Creat Clear Calc 123 Estimated GFR > 60 Glucose 106 Calcium 8.4 Magnesium 1.9 Total Bilirubin 0.7 AST 35 ALT 34 Alkaline Phosphatase 84 Total Protein 6.0 L Albumin 2.7 L Urine Color Yellow Urine Appearance Clear Urine pH 7.0 Ur Specific [place] 1.015 Urine Protein 1+ H Urine Glucose (UA) Negative Urine Ketones Negative Ur Blood (Man) Negative Urine Nitrate Negative Urine Bilirubin Negative Urine Urobilinogen 0.2 Ur Leukocyte Esterase Negative Urine RBC 0-2 Urine WBC 0-5 Ur Squamous Epith Cells None seen Urine Bacteria None seen Urine Casts 0-2 Ur L.pneumophila Ag Not detected Discharge Plan Discharge Attending physician on discharge: Luca Gonzalez Consulting providers: Ramila Rondon; Yamilka Poole Discharging Clinician: Luca Gonzalez Anticipated Discharge Date/Time: 09/09/23 14:37 Patient Disposition: Home, Self-Care Activity: as tolerated Diet: heart healthy Patient Instructions: Antibiotic Form, Metoprolol (By mouth), Heparin/Sodium Chloride Premix (Injection), Apixaban (By mouth), Sacubitril/Valsartan (By mouth), Pulmonary Embolism (GEN), Hypercoagulation (GEN) Stand Alone Forms: General Discharge Information Follow-up/Referrals: Yamilka Poole APN-C [Advanced Practice Nurse] - 2 Weeks Ricky,Leonel Clifford MD [Primary Care Provider] - 1 Week Discharge Medications: New spironolactone 25 mg Tablet 25 mg PO QAM Qty: 30 0RF fluticasone propionate 50 mcg/actuation [place],Suspension 1 spray intranasal Q12HR Qty: 1 0RF amiodarone [Pacerone] 200 mg Tablet 200 mg PO DAILY@0800 Qty: 30 0RF metoprolol succinate [Toprol XL] 25 mg Tablet Extended Release 24 Hr 25 mg PO QAM Qty: 30 0RF Entresto 24-26 mg Tablet 1 tablet PO Q12HR Qty: 60 0RF Eliquis 5 mg Tablet 5 mg PO Q12HR Qty: 60 0RF Rx Instructions: take 2 tab twice daily x 1 day then 1 tab twice daily atorvastatin 40 mg Tablet 80 mg PO DAILY Qty: 30 0RF Continued trazodone 50 mg tablet 50 mg HS PRN (Reason: Sleep) pantoprazole 40 mg tablet,delayed release (DR/EC) 40 mg PO DAILY diazepam 5 mg tablet 5 mg BID PRN (Reason: Anxiety) Discontinued simvastatin 20 mg tablet 20 mg HS Other Ambulatory Orders: Complete Blood Count with Diff (Routine) Timeframe: 1 Week Location: Determined by Patient Ordered By: Luca Gonzalez Comprehensive Metabolic Panel (Routine) Timeframe: 1 Week Location: Determined by Patient Ordered By: Luca Gonzalez Date of admission: 09/01/23 23:50 Primary Care Provider: Ricky,Leonel Clifford Admitting Provider: Lashanda Hinkle Attending physician on admission: Lashanda Hinkle Condition: Improved
--- NOTE | 2023-09-09 16:36 | PC.NURSE ---
patient does not have a ride for d/c today, he is also waiting to be fitted for life vest, most likely will happen Saturday 09/09
[2023-09-10] VITALS (7 sets, daily range): BP systolic 92–116; BP diastolic 60–64; PULSE 88–99; RESP 12–20; TEMP 36.2–36.8; O2SAT 90–93
[2023-09-10 07:33] LABS: Basophils Percent Auto 0.2 % (0.2-1.2); Eosinophils Absolute Auto 0.1 K/mm3 (0-0.3); Eosinophils Percent Auto 1.6 % (0-4.4); Hematocrit 35.7 % (42.0-52.0); Hemoglobin 11.4 g/dL (14.0-18.0); Immature Granulocyte Absolute 0.05 K/mm3 (0.00-0.031); Immature Granulocyte Percent A 0.6 % (0-0.5); Lymphocytes Absolute Auto 0.99 K/mm3 (0.9-3.2); Mean Corpuscular HGB Conc 31.9 g/dl (32-36); Mean Corpuscular Hemoglobin 29.8 pg (26-34); Mean Corpuscular Volume 93.5 fl (80-100); Monocytes Absolute Auto 0.8 K/mm3 (0.1-0.6); Monocytes Percent Auto 9.2 % (2.6-8.5); Neutrophils Percent Auto 77.4 % (45.5-73.1); Platelet Count Result 428 k/mm3 (150-375); Red Blood Count 3.82 M/mm3 (4.6-6.20); Red Cell Distribution Width 12.7 % (11.5-14.5)
[2023-09-10 07:47] LABS: Alanine Aminotransferase 35 U/L (6-50); Albumin Level 2.8 g/dL (3.5-5.1); Alkaline Phosphatase 91 U/L (38-126); Anion Gap 5 mmol/L (4-12); Aspartate Amino Transferase 37 U/L (17-59); Bilirubin,Total 0.8 mg/dL (0.2-1.3); Blood Urea Nitrogen 10 mg/dL (9-20); Calcium 8.6 mg/dL (8.4-10.2); Carbon Dioxide 27 mmol/L (22-30); Chloride 99 mmol/L (98-107); Estimated CRCL calculation 107 ml/min; Estimated Glomerular Filt Rate > 60; Glucose 104 mg/dL (65-110); Magnesium 1.9 mg/dL (1.6-2.3); Potassium 3.6 mmol/L (3.4-5.0); Sodium 131 mmol/L (137-145)
[2023-09-10] MEDS: ATORVASTATIN 40 MG TABLET 80 MG PO (09:01)
[2023-09-10] MEDS: AMIODARONE HCL 200 MG TABLET PO (09:01)
[2023-09-10] MEDS: METOPROLOL SUCCINATE EXT REL 25 MG TABCR PO (09:01)
[2023-09-10] MEDS: FLUTICASONE PROPIONATE 0.05% NA SPR 16 GM BTL (*BKC) 1 SPRAY NASAL (09:02)
[2023-09-10] MEDS: SACUBITRIL/VALSARTAN 24-26 MG TABLET 1 TAB PO (09:02)
[2023-09-10] MEDS: APIXABAN 5 MG TABLET 10 MG PO (09:02)
[2023-09-10] MEDS: SPIRONOLACTONE 25 MG TABLET PO (09:02)
[2023-09-10] MEDS: PANTOPRAZOLE 40 MG TABLET PO (09:02)
--- NOTE | 2023-09-10 11:07 | PCNFU ---
Nutrition Follow-Up Complete: Inadequate oral intake related to loss of appetite as evidenced by self-reported 15 lb weight loss, refusing some meals Goal:Adequate PO intake at least 75% meals and supplements Maintain weight during admission Pt current nutrition is Heart healthy, Ensure compact BID. Nutrition recommendation: continue with current plan of care Last recorded weight is 134.2 kg. Bowel Motility: +BM 09/08 Labs Reviewed: Hgb:11.4, HCT:35.7, Alb:2.8, NA:131 Meds Noted: protonix Skin: no skin issues noted Additional Notes: Pt continues on a heart healthy diet, reports not much of an appetite but is eating each meal, drinking Ensure. Intake charted at 50-100%. Monitoring intakes, weights, labs, plan of care, supplement tolerance Follow up in 7 days
--- NOTE | 2023-09-10 16:38 | PM.DS ---
DS: Admitting Diagnosis Discharge Date 09/10/23 Admitting Diagnosis Shortness of breath DS: Discharge Diagnosis Discharge Diagnosis (1) Acute respiratory failure: Code(s): J96.00 - Acute respiratory failure, unspecified whether with hypoxia or hypercapnia Status: Acute (2) Pulmonary embolism and infarction: Code(s): I26.99 - Other pulmonary embolism without acute cor pulmonale Status: Acute (3) Atrial fibrillation with RVR: Code(s): I48.91 - Unspecified atrial fibrillation Status: Acute (4) Pneumonia: Code(s): J18.9 - Pneumonia, unspecified organism Status: Acute (5) Elevated troponin: Code(s): R79.89 - Other specified abnormal findings of blood chemistry Status: Acute (6) Hyperglycemia: Code(s): R73.9 - Hyperglycemia, unspecified Status: Acute (7) Hyponatremia: Code(s): E87.1 - Hypo-osmolality and hyponatremia Status: Acute (8) Heart failure with reduced ejection fraction: Code(s): I50.20 - Unspecified systolic (congestive) heart failure Status: Acute (9) Left bundle branch block: Code(s): I44.7 - Left bundle-branch block, unspecified Status: Acute (10) Hyperlipidemia: Code(s): E78.5 - Hyperlipidemia, unspecified Status: Acute DS: Summary Hospital Course Reason for hospitalization: 72yo male with HLD and anxiety/depression here for shortness of breath.??Please see H&P for details. Hospital Course: Patient presented to the ED on 09/01/2023. He was hypoxic on room air and was placed on 4 L nasal cannula with improvement in her saturations and mid upper 90s. He was tachycardic and normotensive. EKG showed sinus tachycardia left bundle branch block no acute ischemic changes. WBC count 15.1 hemoglobin 12.3 hyponatremic at 126. Troponin I was elevated at 0.308 and lactate was normal. proBNP 6400. Influenza, RSV and COVID negative. CTA was performed which showed multiple acute occlusive and nonocclusive emboli affecting all lung lobes. He had a large clot burden with evidence of right heart strain. He also has multiple segmental pulmonary infarcts although cannot exclude pneumonia. Patient was started on heparin drip. His also started on Rocephin, doxycycline and vancomycin. Venous duplex were negative. Etiology of the PE was unclear. Echo 09/02/23: EF 20-25%, grade 1 diastolic dysfunction possible LV thrombus in the apex versus heavy trabeculation. Flattening of the ventricular septum in mid to late diastole consistent with right ventricular volume overload. Heparin drip switched to oral apixaban. MRSA nares is negative and vancomycin was stopped. Blood culture 1 out of 4 positive for Staphylococcus epidermidis likely a contaminant. Hypoxic respiratory failure needing supplemental oxygen. Pulmonary consulted. Tapered down to room air. Leukocytosis worsened 09/08/2023 with chest x-ray followed by CT chest was performed which was reviewed. He completed a course of antibiotics. Hyponatremia could be SIADH due to recent lung disease or from the elevated glucose. Sodium level better. Atrial fibrillation with RVR developed after admission. Started on amiodarone drip and Cardiology consulted. Patient converted to sinus rhythm on amiodarone drip and switched to oral amiodarone. [id number] score 3 requiring long-term anticoagulation for stroke prophylaxis. For his newly diagnosed heart failure with reduced ejection fraction, he was started on Entresto and Toprol eventual addition of spironolactone. Will need an ischemic evaluation as an outpatient basis. Patient change to Full Code and he was fitted for LifeVest. Possible LV thrombus in the left LV apex versus heavy trabeculation cannot rule out thrombus already on anticoagulation. He overall did well and was able to be discharged home on 09/10/23 Status at Discharge Cognitive/behavioral status at discharge: stable Time Spent with Patient T
--- NOTE | 2023-09-10 16:58 | PC.NURSE ---
live vest on, iv out, d/c papers discussed, home med returned to patient. denies any questions
== END 2023-09-10 17:25 | disposition home or self-care (01) | DRG 175 ==
LOC: ANHED 19:30 → ANHIMU 09-02 → ANH3MEDSUR 09-02 13:49 → ANHIMU 09-02 13:58 → ANH3MEDSUR 09-06 14:50
PROVIDERS: Family Medicine; Internal Medicine; Internal Medicine Critical Care Medicine; Admitting Provider Internal Medicine; Emergency Provider Emergency Medicine; PCP Internal Medicine; Visit Provider Internal Medicine
DX: J96.01 Acute respiratory failure with hypoxia; I26.94 Multiple subsegmental thrombotic pulmonary emboli without acute cor pulmonale; E22.2 Syndrome of inappropriate secretion of antidiuretic hormone; I50.20 Unspecified systolic (congestive) heart failure; Z66 Do not resuscitate; E87.6 Hypokalemia; E78.5 Hyperlipidemia, unspecified; F41.9 Anxiety disorder, unspecified; F32.A Depression, unspecified; I44.7 Left bundle-branch block, unspecified; I48.91 Unspecified atrial fibrillation; R73.9 Hyperglycemia, unspecified; Z88.0 Allergy status to penicillin; Z87.891 Personal history of nicotine dependence; Z20.822 Contact with and (suspected) exposure to COVID-19
CPT/HCPCS: 36415; 71045; 71046; 71250; 71275; 80048; 80053; 80061; 80202; 81001; 82948; 83036; 83605; 83690; 83735; 83880; 84100; 84145; 84443; 84484; 85025; 85027; 85610; 85730; 87040; 87077; 87181; 87449; 87637; 87641; 87899; 93005; 93970; 96361; 96365; 96366; 96367; 97161; 97165; 99285; A9270; C8929; J0282; J0692; J0696; J1644; J3370; J7030; Q9957; Q9967